=== PATIENT | male | born 1990 ===

== ENCOUNTER 2025-08-23 11:01 | Emergency (ER) | payer OTHER, SELFPAY ==
--- NOTE | ~2025-08-23 | XR_ITS ---
EXAMINATION: XR CHEST CLINICAL INFORMATION: body aches, weakness COMPARISON: None available. TECHNIQUE: 2 views of the chest were obtained. FINDINGS: The cardiomediastinal silhouette is within normal limits. The lungs are well expanded. There is no focal consolidation, edema, or effusion. No pneumothorax. No acute osseous abnormality. XR/XR chest 2V IMPRESSION: No evidence of acute cardiopulmonary process. Electronically signed by: Gino Chan MD 08/23/2025 12:38 PM EDT
--- NOTE | ~2025-08-23 | CT_ITS ---
EXAMINATION: CT ABDOMEN AND PELVIS WITH CONTRAST CLINICAL INFORMATION: Evaluate for pyelonephritis. COMPARISON: None available. TECHNIQUE: Multidetector volumetric images were obtained from the superior aspect of the liver through the pubic symphysis following administration 85 mL of Omnipaque 350 intravenous contrast. Sagittal and coronal reformatted images were obtained on the technologist's workstation. Oral contrast: No This CT examination was performed using dose optimization techniques as appropriate, variously including the following: *Automated exposure control *Adjustment of mA and/or kV according to patient size (this includes techniques or standardized protocols for targeted exams where dose is matched to indication/reason for exam; i.e. extremities or head) *Use of iterative reconstruction technique FINDINGS: LUNG BASES: Lung bases are essentially clear. Heart size is normal. No effusions. LIVER, GALLBLADDER, AND BILIARY TREE: The liver is normal in size, shape, and attenuation. No focal hepatic lesion or biliary ductal dilatation is present. The gallbladder is unremarkable with no evidence of radiopaque gallstones, gallbladder wall thickening, or obvious pericholecystic inflammatory changes. PANCREAS: Unremarkable. SPLEEN: Mild splenic enlargement measuring 15 x 14.8 cm. ADRENAL GLANDS: Unremarkable. KIDNEYS AND URETERS: There are 2 nonobstructing calculi in the right kidney measuring up to 5 mm in the lower pole. No hydronephrosis or hydroureter. There is no striation of the nephrogram. There is no mass. There are tiny subcentimeter cysts. There is no significant perirenal stranding. The left kidney demonstrates no calculi, hydronephrosis, or hydroureter. There is no striation of the nephrogram. There is no mass. There are tiny subcentimeter cysts. There is no significant perirenal stranding. BLADDER: Partially distended. There is diffuse, severe wall thickening with mucosal enhancement suggesting cystitis. There is mild perivesicular stranding. GASTROINTESTINAL TRACT: The appendix is normal. The stomach, duodenum, small bowel appear normal. The colon is a normal caliber, course, and appearance without wall thickening or inflammation. There is no rectal abnormality. ABDOMINAL WALL: There is a small fat-containing right inguinal hernia. LYMPH NODES: There is no pathologic lymphadenopathy present. Mildly prominent reactive appearing lymph nodes are present in the right greater than left inguinal regions. VASCULAR: Unremarkable. PELVIC VISCERA: The prostate and seminal vesicles are unremarkable. OSSEOUS STRUCTURES: There is no suspicious lytic or blastic bone lesion. There is mild sclerosis and subtle erosions of both SI joints suggestive of inflammatory arthropathy. CT/CT abdomen pelvis w IV con IMPRESSION: 1. Diffuse, severe wall thickening and mucosal enhancement of the urinary bladder suggesting cystitis/UTI. 2. There are 2 nonobstructing calculi in the right kidney. There is no evidence of pyelonephritis or hydronephrosis. 3. Mild splenomegaly. 4. 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 Electronically signed by: Yobani Farnsworth MD 08/23/2025 04:20 PM EDT
[2025-08-23 11:27] VITALS: BP 153/95; PULSE 101; RESP 20; TEMP 37.2; O2SAT 97; BMI 29.0
--- NOTE | 2025-08-23 11:27 | ED_ITS ---
HPI - General Adult General Chief complaint: General Medical Stated complaint: body aches Time Seen by Provider: 08/23/25 12:44 Source: patient Mode of arrival: ambulatory Limitations: no limitations History of Present Illness ED Provider: HPI narrative: 35-year-old male, history of non-insulin diabetes, reports using metformin 1000 mg before bedtime and glyburide unable to recall his dose, but has not been taking it for the past 3 days, it sounds like 5 days ago went out, I was drinking what he thought was as diet soda but likely regular [place] came home and sugars were high next day started vomiting, did not have diarrhea, since then decreased appetite and does not take his metformin I will give her a ride because he has not been eating. Sugars has been running high, some positional back pain he thinks because of just lots of sitting, no numbness in the groin, no weakness or numbness in the lower extremities, no IV drug use, and states that because of decreased p.o. intake has had trouble urinating but has been able to urinate. Drinks a lot of water. Also reports body aches. Otherwise healthy Related Data Previous Rx's ?Medication ?Instructions ?Recorded cephalexin 500 mg capsule 500 mg PO BID 7 days #14 cap s 08/23/25 ondansetron 4 mg disintegrating 4 mg PO Q8H PRN nausea and 08/23/25 tablet vomiting #4 tabs Allergies Allergy/AdvReac Type Severity Reaction Status Date / Time No Known Allergies Allergy Verified 08/23/25 11:30 Review of Systems 2 Constitutional: Constitutional: Reports as per [facility] Social History Social History Smoked in Last 30 Days: No Advance Directives: No Advance Directives Information Provided: Yes Physical Exam ED Exam Exam: General: ?Appears of stated age ? ?PERRLA, EOMI, slightly dry oral mucosa ? Neck: Supple, no LAD ? ?CV: RRR, no obvious murmurs appreciated ? ?Resp: ?No wheezing rales rhonchi no stridor moving air well ? Abd: ?Bowel sounds are present, no tenderness no rebound no rigidity, deferred ? ?MSK: FROM, strength 5/5 all extremities ? Skin: Warm, dry, intact, no jaundice ? ?Neuro: ?Alert and oriented x3, moving upper and lower extremities symmetrically, no obvious facial asymmetry noted, cranial nerves 2-12 intact Vital Signs: Vital Signs - 24 hr 08/23/25 11:27 08/23/25 12:20 08/23/25 14:04 Temperature 99 F 100.8 F H 98.8 F Pulse Rate 101 H 94 83 Respiratory Rate 20 22 H 18 Blood Pressure 153/95 H 155/93 H 142/91 H Pulse Oximetry 97 98 97 Oxygen Delivery Method Room Air Room Air Room Air BMI result Body Mass Index 29.0 Course Course Course Narrative: This is a Rapid Medical Examination (RME) performed by Simón Rueda PA-C in triage. Full HPI, ROS, assessment and treatment plan per primary provider in the Main ED. Hx: 35 yo M here for eval of nausea, vomiting, low back pain, subjective fevers, sweats, decreased PO intake, decreased urination and BMs x2 days. admits his sweat smells like urine. endorses his blood sugars have been >400 over the last week, has been changing his CGM without change. admits to sweet taste in mouth. PE/vitals: well appearing. 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 Plan: labs, viral swabs, UA Medications Administered Discontinued Medications Generic Name Dose Route Start Last Admin Trade Name Freq PRN Reason Stop Dose Admin Sodium Chloride 1,000 mls @ 999 mls/hr 08/23/25 13:30 08/23/25 14:56 Ns IV 08/23/25 14:30 Infused .Q1H1M RC Infusion Sodium Chloride 1,000 mls @ 999 mls/hr 08/23/25 15:15 08/23/25 15:34 Ns IV 08/23/25 16:15 999 mls/hr .Q1H1M RC Administration Ceftriaxone Sodium 2 gm/ 50 mls @ 100 mls/hr 08/23/25 15:30 08/23/25 16:05 Sodium Chloride IV 08/23/25 15:59 100 mls/hr ONCE ONE Administration Insulin Human Regular 10 unit 08/23/25 13:23 08/23/25 13:45 Insulin Regular, Human 100 Unit/Ml 10 Ml Vial IVPUSH 08/23/25 13:24 10 unit ONCE ONE Administration Insulin Human Regular 8 unit 08/23/25 15:08 08/23/25 15:33 Insulin Regular, Human 100 Unit/Ml 10 Ml Vial IVPUSH 08/23/25 15:09 8 unit ONCE ONE Administration Iohexol 100 ml 08/23/25 15:40 08/23/25 15:40 Iohexol 350 Mg/Ml 100 Ml Infus..Btl IV 08/23/25 15:41 100 ml ONCE ONE Administration Ketorolac Tromethamine 15 mg 08/23/25 13:23 08/23/25 13:46 Ketorolac Tromethamine 15 Mg/Ml Vial IVPUSH 08/23/25 13:24 15 mg ONCE ONE Administration Lidocaine 1 patch 08/23/25 13:23 08/23/25 13:46 Lidocaine 4 % Patch Adh..Patch TRANSDERMA 08/23/25 13:24 1 patch ONCE ONE Administration Protocol Ondansetron HCl 4 mg 08/23/25 13:23 08/23/25 13:45 Ondansetron Hcl 4 Mg/2 Ml Vial IVPUSH 08/23/25 13:24 4 mg ONCE ONE Administration Medical Decision Making Medical Decision Making MDM Narrative: 1:28 PM 08/23/2025 (Dr. Dax Agrawal): Overall patient has no risk factors for underlying spinous infectious etiology such as diskitis, osteomyelitis or spinal epidural abscess necessitating further imaging such as CT, there was really no suspicion for a renal colic as well, he has some lower lumbar pain paraspinal without rashes, with palpable spasms, no neurologic deficits in the lower extremities, blood work without any evidence for ketotic state, glucose is elevated, initially came in afebrile and then repeat temperature was 100.8 degrees, chest x-ray without pneumonia, the limited viral swab is negative, awaiting urinalysis to make sure it does not have a UTI, abdominal exam is otherwise benign. I plan to give fluids, antiemetics, anti- inflammatories, re-evaluate, I make sure he is able to take his metformin and glyburide. 4:35 PM 08/23/2025 (Dr. Dax Agrawal): Patient has been doing well overall, I have kept them updated regarding imaging, my suspicion for pyelonephritis and that is the reason why we obtained a CT, he received IV antibiotics, reassuringly CT shows cystitis no evidence for pyelonephritis, he is beginning to feel much better with fluids antiemetics, we will make sure he is able to tolerate p.o. and p.o. medications before I plan for discharge Differential Diagnosis Differential Diagnoses: The differential diagnosis associated with the presentation includes (DKA, dehydration, diskitis, osteomyelitis, spinal epidural abscess, pyelonephritis, UTI) Admission/Observation Consideration of admission/observation: Escalation of care including admission/observation considered Lab Data MDM Lab Attestation statement: I reviewed the patient's lab results. 08/23/25 11:42 08/23/25 11:42 Labs: Lab Results 08/23/25 08/23/25 08/23/25 Range/Units 11:42 11:46 12:24 WBC 6.2 (4.8-10.8) X10*3/uL RBC 5.68 (4.60-5.80) X10*6/uL Hgb 17.0 (14.0-18.0) g/dl Hct 48.1 (42.0-52.0) % MCV 84.7 (80.0-98.0) fL MCH 29.9 (27.0-33.0) pg MCHC 35.3 (31.0-36.0) g/dl RDW 11.5 (11.0-16.0) % Plt Count 166 (160-400) X10*3/uL MPV 9.5 (9.4-12.4) fL Immature Gran % (Auto) 0.3 (0.0-0.4) % Neut % (Auto) 74.0 H (45-73) % Lymph % (Auto) 16.9 L (20-40) % [place] % (Auto) 7.6 (2-11) % Eos % (Auto) 0.5 (0-4) % Baso % (Auto) 0.7 (0-2) % Lymph # (Auto) 1.0 L (1.2-4.9) X10*3/uL [place] # (Auto) 0.5 (0.1-1.2) X10*3/uL Eos # (Auto) 0.0 (0.0-0.4) X10*3/uL Baso # (Auto) 0.0 (0.0-0.2) X10*3/uL Abs Immat Gran (auto) 0.02 (0.00-0.03) X10*3/uL Absolute Neuts (auto) 4.6 (2.0-8.3) x10*3/uL Absolute Nucleated RBC 0.000 (0.0-0.012) X10*3/uL Nucleated RBC % (auto) 0.0 (0.0-0.2) /100WBC VBG pH 7.44 H (7.32-7.43) VBG pCO2 41 mmHg VBG pO2 43 mmHg VBG HCO3 28 H (22-26) mmol/L VBG O2 Saturation 74.0 % VBG Base Excess 4.0 mmol/L Sodium 136 (135-145) mmol/L Potassium 3.6 (3.3-5.1) mmol/L Chloride 99 (96-108) mmol/L Carbon Dioxide 27 (22-29) mmol/L Anion Gap 14 (12-20) BUN 11 (9-16) mg/dL Creatinine 0.77 (0.5-1.4) mg/dL Estim Creat Clear Calc 187.2 Estimated GFR > 60 POC Glucose 348 H (60-115) mg/dL Random Glucose 370 H* (60-115) mg/dL Calcium 9.0 (8.4-10.2) mg/dL Magnesium 1.7 (1.6-2.6) mg/dL Total Bilirubin 0.9 (0.0-1.0) mg/dL AST 25 (5-37) U/L ALT 25 (0-40) U/L Alkaline Phosphatase 118 H (39-117) U/L Total Protein 7.5 (6.5-8.0) g/dL Albumin 3.9 (3.5-5.0) g/dL Lipase 17 (8-78) U/L Beta-Hydroxybutyrate 0.13 (0.02-0.27) mmol/L Urine Color Urine Appearance Urine pH (5.0-9.0) Ur Specific [place] (1.005-1.025) Urine Protein (Neg-Trace) mg/dL Urine Glucose (UA) (Negative) mg/dL Urine Ketones (Negative) mg/dL Urine Blood (Negative) Urine Nitrite (Negative) Ur Leukocyte Esterase (Negative) Urine RBC (0-2) /HPF Urine WBC (0-5) /HPF Ur Squamous Epith Cells (0-2) /HPF Urine Bacteria (None Seen) Hyaline Casts (0-2) /LPF COVID-19 ([facility]) Negative (Negative) COVID-19 Clin Com See Note Influenza Type A ([facility]) Negative (Negative) Influenza Type B ([facility]) Negative (Negative) Influenza A & B Note See Note 08/23/25 08/23/25 Range/Units 14:54 15:02 WBC (4.8-10.8) X10*3/uL RBC (4.60-5.80) X10*6/uL Hgb (14.0-18.0) g/dl Hct (42.0-52.0) % MCV (80.0-98.0) fL MCH (27.0-33.0) pg MCHC (31.0-36.0) g/dl RDW (11.0-16.0) % Plt Count (160-400) X10*3/uL MPV (9.4-12.4) fL Immature Gran % (Auto) (0.0-0.4) % Neut % (Auto) (45-73) % Lymph % (Auto) (20-40) % [place] % (Auto) (2-11) % Eos % (Auto) (0-4) % Baso % (Auto) (0-2) % Lymph # (Auto) (1.2-4.9) X10*3/uL [place] # (Auto) (0.1-1.2) X10*3/uL Eos # (Auto) (0.0-0.4) X10*3/uL Baso # (Auto) (0.0-0.2) X10*3/uL Abs Immat Gran (auto) (0.00-0.03) X10*3/uL Absolute Neuts (auto) (2.0-8.3) x10*3/uL Absolute Nucleated RBC (0.0-0.012) X10*3/uL Nucleated RBC % (auto) (0.0-0.2) /100WBC VBG pH (7.32-7.43) VBG pCO2 mmHg VBG pO2 mmHg VBG HCO3 (22-26) mmol/L VBG O2 Saturation % VBG Base Excess mmol/L Sodium (135-145) mmol/L Potassium (3.3-5.1) mmol/L Chloride (96-108) mmol/L Carbon Dioxide (22-29) mmol/L Anion Gap (12-20) BUN (9-16) mg/dL Creatinine (0.5-1.4) mg/dL Estim Creat Clear Calc Estimated GFR POC Glucose 287 H (60-115) mg/dL Random Glucose (60-115) mg/dL Calcium (8.4-10.2) mg/dL Magnesium (1.6-2.6) mg/dL Total Bilirubin (0.0-1.0) mg/dL AST (5-37) U/L ALT (0-40) U/L Alkaline Phosphatase (39-117) U/L Total Protein (6.5-8.0) g/dL Albumin (3.5-5.0) g/dL Lipase (8-78) U/L Beta-Hydroxybutyrate (0.02-0.27) mmol/L Urine Color Dark Yellow Urine Appearance Cloudy Urine pH 6.0 (5.0-9.0) Ur Specific [place] >= 1.030 H (1.005-1.025) Urine Protein 100 (2+) H (Neg-Trace) mg/dL Urine Glucose (UA) >=1000 H (Negative) mg/dL Urine Ketones Trace (Negative) mg/dL Urine Blood Small (1+) H (Negative) Urine Nitrite Positive H (Negative) Ur Leukocyte Esterase Small (1+) H (Negative) Urine RBC 3-5 H (0-2) /HPF Urine WBC >50 H (0-5) /HPF Ur Squamous Epith Cells 0-2 (0-2) /HPF Urine Bacteria 4+ (None Seen) Hyaline Casts 0-2 (0-2) /LPF COVID-19 ([facility]) (Negative) COVID-19 Clin Com Influenza Type A ([facility]) (Negative) Influenza Type B ([facility]) (Negative) Influenza A & B Note ABG Data Attestation ABG: I personally reviewed and interpreted this ABG as follows: (There was no acidosis on VBG) Independent Interpretation I performed an independent interpretation of an: Plain X-Ray (My independent chest xray interpretation: Lungs: Lungs are clear bilaterally without evidence of focal consolidation, pleural effusion, or pneumothorax. Cardiac silhouette is unremarkable, no obvious mediastinal widening, no obvious bony abnormalities such as fractures. Impression: Normal chest X-r) Radiology Impression Discussion of test interpretation with radiology: I have reviewed the radiologist's reading. Radiologist Impression: 1. Diffuse, severe wall thickening and mucosal enhancement of the urinary bladder suggesting cystitis/UTI. 2. There are 2 nonobstructing calculi in the right kidney. There is no evidence of pyelonephritis or hydronephrosis. 3. Mild splenomegaly. 4. 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 Prescription Management I considered prescription management with: Pain Medication Chronic Conditions Patient?s care impacted by: Diabetes Discharge Plan Discharge Clinical Impression: Hyperglycemia Acute cystitis Qualifiers: Hematuria presence: with hematuria Qualified Code(s): N30.01 - Acute cystitis with hematuria Additional Instructions: Evaluated with elevated glucose, nausea, vomiting, fever, found to have urinary tract infection, cat scan was done to make sure there was no kidney infection, received fluids, insulin, also 500 mg metformin and 2.5 mg of glipizide, at home you can use another 500 mg of metformin for a regular dose and check if you take 5 mg of glipizide just take another half of your regular pill. Ondansetron is an antiemetic if you have nausea, vomiting you can take it every 6-8 hours as needed for nausea, stay well hydrated, continue antibiotics starting tomorrow. Follow up with the PCP any other issues concerns come back to the ER Prescriptions: New cephalexin 500 mg capsule 500 mg PO BID 7 Days Qty: 14 0RF ondansetron 4 mg tablet,disintegrating 4 mg PO Q8H PRN (Reason: nausea and vomiting) Qty: 4 0RF Print Language: Faroese
[2025-08-23 11:47] LABS: MANUAL DIFF FLAG NO
[2025-08-23 11:50] LABS: Hematocrit 48.1 % (42.0-52.0); Hemoglobin 17.0 g/dl (14.0-18.0); Imm Gran Abs Auto 0.02 X10*3/uL (0.00-0.03); Imm Gran Pct Auto 0.3 % (0.0-0.4); Lymphocytes Absolute Auto 1.0 X10*3/uL (1.2-4.9); Mean Corpuscular HGB Conc 35.3 g/dl (31.0-36.0); Mean Corpuscular Hemoglobin 29.9 pg (27.0-33.0); Mean Corpuscular Volume 84.7 fL (80.0-98.0); NRBC Abs Auto 0.000 X10*3/uL (0.0-0.012); NRBC Pct Auto 0.0 /100WBC (0.0-0.2); Platelet Count 166 X10*3/uL (160-400); Red Blood Count 5.68 X10*6/uL (4.60-5.80); White Blood Count 6.2 X10*3/uL (4.8-10.8)
[2025-08-23 11:52] LABS: Venous Blood Gas Refer to POC result
[2025-08-23 11:53] LABS: VBG HCO3 28 mmol/L (22-26); VBG O2 % Saturation 74.0 %
[2025-08-23 12:09] LABS: COVID-19 Test Negative (Negative); IDNOW Serial# 08D9AD1C
[2025-08-23 12:18] LABS: Alanine Aminotransferase 25 U/L (0-40); Albumin Level 3.9 g/dL (3.5-5.0); Alkaline Phosphatase 118 U/L (39-117); Anion Gap 14 (12-20); Aspartate Amino Transferase 25 U/L (5-37); Blood Urea Nitrogen 11 mg/dL (9-16); Calcium 9.0 mg/dL (8.4-10.2); Carbon Dioxide 27 mmol/L (22-29); Chloride 99 mmol/L (96-108); Creatinine Clr Calc Pharmacy 187.2; Estimated Glomerular Filt Rate > 60; Lipase 17 U/L (8-78); Magnesium 1.7 mg/dL (1.6-2.6); Potassium 3.6 mmol/L (3.3-5.1); Sodium 136 mmol/L (135-145); Total Protein 7.5 g/dL (6.5-8.0)
[2025-08-23 12:20] VITALS: BP 155/93; PULSE 94; RESP 22; TEMP 38.2; O2SAT 98
[2025-08-23 12:27] LABS: Glucose, Whole Blood 348 mg/dL (60-115)
[2025-08-23 12:40] LABS: IDNOW Serial# 55D5AD1C; Influenza B2 Negative (Negative)
[2025-08-23] MEDS: Lidocaine 4 % Patch ADH..PATCH 1 PATCH TRANSDERMA (13:46)
[2025-08-23 14:04] VITALS: BP 142/91; PULSE 83; RESP 18; TEMP 37.1; O2SAT 97
[2025-08-23 15:07] LABS: Glucose, Whole Blood 287 mg/dL (60-115)
[2025-08-23 15:13] LABS: Appearance Urine Cloudy; Glucose Urine UA >=1000 mg/dL (Negative); PH 6.0 (5.0-9.0); Specific Gravity - Urine >= 1.030 (1.005-1.025); UMIC TRIGGER UACC YES
[2025-08-23 15:23] LABS: UACC Culture Trigger YES
[2025-08-23] MEDS: iohexoL 350 MG/ML 100 ML INFUS..BTL IV (15:40)
[2025-08-23 16:46] LABS: Glucose, Whole Blood 172 mg/dL (60-115)
[2025-08-23 17:37] VITALS: BP 135/77; PULSE 88; RESP 18; TEMP 36.7; O2SAT 96
[2025-08-23 17:45] VITALS: BP 135/77; PULSE 88; RESP 18; TEMP 36.7; O2SAT 96
--- OUTSIDE RECORDS SUMMARY | 2025-08-23 18:33 | XMS_ITS | Clinical Summary ---
Author Organization Formerly [facility] Address [address] [place] [address] Care Team Providers Care Quilt Maker Name Role Phone Brent Gotti MD Primary Care Provider [phone] Allergies No known active allergies Medications methocarbamol (ROBAXIN) 750 MG tablet Take 1 tablet (750 mg total) by mouth 4 times daily (every 6 hours) as needed for muscle spasms. 20 tablet 0 12/29/2016 Active Social History Tobacco Use Types Packs/Day Years Used Date Smoking Tobacco: Never Alcohol Use Standard Drinks/Week Comments No 0 (1 standard drink = 0.6 oz pur e alcohol) Sex and Gender Information Value Date Recorded Sex Assigned at Not on file Legal Sex Male 7:24 PM EST Gender Identity Not on file Sexual Orientation Not on file Last Filed Vital Signs Vital Sign Reading Time Taken Comments Blood Pressure 140/80 12/29/2016 7:26 PM EST Pulse 96 12/29/2016 7:26 PM EST Temperature 36.2 C (97.2 F) 12/29/2016 7:26 PM EST Respiratory Rate 18 12/29/2016 7:26 PM EST Oxygen Saturation 98% 12/29/2016 7:26 PM EST Inhaled Oxygen Concentration - - Weight - - Height - - Body Mass Index - - Plan of Treatment Health Maintenance Due Date Last Done Comments Hepatitis C Virus Screening 1991 HIV Screening 2004 DTaP/Tdap/Td Vaccines (1 - Tdap) 2010 Hepatitis B Vaccines (1 of 3 - 19+ 3-dose series) 2010 Influenza Vaccine 06/02/2025 COVID-19 Vaccine (2023-2 5 season) 2025 HPV Vaccines (No Doses Required) Completed Pneumococcal Vaccine: Pediat emily (0-5 Years) and At-Risk Patients (6 to 49 Years) Aged Out No longer eligible b ased on patient's age to complete this topic Insurance [facility] Care Teams Quilt Maker Relationship Specialty Start Date End Date Brent Gotti MD PCP - General 12/29/16
--- OUTSIDE RECORDS SUMMARY | 2025-08-23 18:33 | XMS_ITS | Clinical Summary ---
Author Organization [facility] Address [address] [place] [address] Care Team Providers Care Transmitter Tester Name Role Phone Brent Gotti MD Primary Care Provider [phone] Allergies No known active allergies Medications Medication Sig Dispensed Refills Start Date End Date Status Oftlubb-Axwxd-Nswainwb- TenofDF (STRIBILD PO) Take by mouth every night at bedtime. 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 Human immunodeficiency virus (HIV) infection Papanicolaou smear of anus w ith atypical squamous cells of undetermined significance (ASC-US) 04/01/2017 Resolved Problems Problem Noted Date Diagnosed Date Resolved Date Perirectal abscess 04/01/2017 7 Anal fistula 02/16/2017 06/29/2017 Social History Tobacco Use Types Packs/Day Years Used Date Smoking Tobacco: Former Cigarettes 0.3 Alcohol Use Standard Drinks/Week Comments No 0 (1 standard drink = 0.6 oz pur e alcohol) Sex and Gender Information Value Date Recorded Sex Assigned at Not on file Gender Identity Not on file Sexual Orientation Not on file Last Filed Vital Signs Vital Sign Reading Time Taken Comments Blood Pressure 130/76 06/29/2017 3:19 PM EDT Pulse 93 06/29/2017 3:19 PM EDT Temperature 36.3 C (97.4 F) 02/20/2017 10:30 AM EDT Respiratory Rate 16 02/20/2017 11:33 AM EDT Oxygen Saturation 97% 02/20/2017 11:33 AM EDT Inhaled Oxygen Concentration - - Weight 128.4 kg (283 lb) 06/29/2017 3:19 PM EDT Height 195.6 cm (6' 5 ) 06/29/2017 3:19 PM EDT Body Mass Index 33.56 06/29/2017 3:19 PM EDT Plan of Treatment Health Maintenance Due Date Last Done Comments Hepatitis B Vaccines (1 of 3 - 3-dose series) 1991 Hepatitis C Screening 1991 Pneumococcal Vaccine (1 of 2 - PCV) 1997 Depression Screening 2003 Preventative Health Evaluation 2009 DTap / Tdap / Td (1 - Tdap) 2010 COVID-19 Vaccine (4 - 2024-2 6 season) 2025 03/25/2022, 02/24/2021, 01/29/2021 Influenza Vaccine (#1) 2025 RSV Ped < 20 months Aged Out No longe r eligible based on patient's age to complete this topic Advance Directives For more information, please contact: [phone] Latest Code Status on File Code Status Date Activated Date Inactivated Comments Full Code 02/20/2017 8:03 AM 02/20/2017 7:14 PM This code status was ascertained in the following way: discussion with patient. Care Teams Transmitter Tester Relationship Specialty Start Date End Date Brent Gotti MD PCP - General Family Medicine 02/11/17
--- OUTSIDE RECORDS SUMMARY | 2025-08-23 18:33 | XMS_ITS | Clinical Summary ---
Author Organization [facility] it Address [address] [place] [address] Care Team Providers Care Airborne Electronics Analyst Name Role Phone Brent Gotti MD Primary Care Provider [phone] Surgical History Surgery Date Site/Laterality Comments UPPER GASTROINTESTINAL ENDOSCOPY PROCEDURE:UPPER GASTROINTESTINAL ENDOSCOPY OTHER SURGICAL HISTORY 02/20/2017 N/A PROCEDURE:TREATMENT FISTULA ANAL;COMMENT:Procedure: @ PLACEMENT OF [facility]ON anal exam uinder anesthesia with biopsy; Surgeon: Cleveland Alanis MD; Location: MAIN OPERATING ROOM; Service: Colorectal; Laterality: N/A; Medical History Medical History Date Comments Hyperlipidemia DX:Hyperlipidemi a HIV (human immunodeficiency virus infection) ([facility]/HCC V24, CMS/HCC V28) DX:HIV (human im munodeficiency virus infection) ([facility]) ADHD (attention deficit hype ractivity disorder) DX:ADHD (attention deficit h yperactivity disorder) Social History Tobacco Use Types Packs/Day Years Used Date Smoking Tobacco: Former Cigarettes Alcohol Use Standard Drinks/Week Comments No 0 (1 standard drink = 0.6 oz pur e alcohol) Sex and Gender Information Value Date Recorded Sex Assigned at Not on file Legal Sex Male 4:31 PM EST Gender Identity Not on file Sexual Orientation Not on file Obstetrics History Plan of Treatment Health Maintenance Due Date Last Done Comments DTaP,Tdap,and Td Vaccines (1 - Tdap) 2010 Hepatitis B Vaccines (1 of 3 - 19+ 3-dose series) 2010 HPV Vaccines (1 - 3-dose SCD M series) 2018 Depression Screening 11/02/2024 COVID-19 Vaccine (4 - 2024-2 6 season) 2025 03/25/2022, 02/24/2021, 01/29/2021 Influenza Vaccine (#1) 2025 RSV Immunization Adult Patients (1 - 1-dose 75+ series) 2066 HIB Vaccines Aged Out No longer eligi ble based on patient's age to complete this topic Hepatitis A Vaccines Aged Out No long er eligible based on patient's age to complete this topic IPV Vaccines Aged Out No longer eligi ble based on patient's age to complete this topic MMR Vaccines Aged Out No longer eligi ble based on patient's age to complete this topic Meningococcal ACWY Vaccine Aged Out N o longer eligible based on patient's age to complete this topic Meningococcal B Vaccine Aged Out No l onger eligible based on patient's age to complete this topic Pneumococcal Vaccine: Pediatrics (0 to 5 Years) and At-Risk Patients (6 to 49 Years) Aged Out No longer eligible b ased on patient's age to complete this topic RSV Immunization Patients Under 20 months Aged Out No longer eligible b ased on patient's age to complete this topic Varicella Vaccines Aged Out No longer eligible based on patient's age to complete this topic Care Teams Airborne Electronics Analyst Relationship Specialty Start Date End Date Brent Gotti MD PCP - General Family Medicine 02/11/17
== END 2025-08-23 17:45 | disposition home or self-care (01) ==
PROVIDERS: Physician Assistant Medical; Emergency Provider Emergency Medicine; PCP Internal Medicine
DX: N39.0 Urinary tract infection, site not specified (principal); E11.65 Type 2 diabetes mellitus with hyperglycemia; M79.10 Myalgia, unspecified site; R11.2 Nausea with vomiting, unspecified; R50.9 Fever, unspecified; M54.50 Low back pain, unspecified; Z11.52 Encounter for screening for COVID-19; Z79.899 Other long term (current) drug therapy
CPT/HCPCS: 71046; 74177; 80053; 81001; 82010; 82803; 82947; 83690; 83735; 85025; 87040; 87086; 87088; 87186; 87502; 87635; 96361; 96374; 96375; 96376; 99284; 99285; J0696; J1885; J2405; Q9967

== ENCOUNTER → 2025-08-23 12:23 | Outpatient (BNV) | payer OTHER, SELFPAY | PROVIDERS: Emergency Provider Emergency Medicine; Visit Provider Radiology Diagnostic Ultrasound | DX: N20.0 Calculus of kidney (principal); R16.1 Splenomegaly, not elsewhere classified; R07.9 Chest pain, unspecified; R53.1 Weakness | CPT/HCPCS: 71046; 74177 ==

== ENCOUNTER 2025-09-22 20:43 | Inpatient (IN) | payer OTHER, SELFPAY ==
--- NOTE | ~2025-09-22 | CT_ITS ---
CLINICAL HISTORY: known pyelo, requested by Dr. Norris CT abdomen and pelvis without contrast Comparison: CT/CA/SR - CT ABDOMEN PELVIS WITH IV CONTRAST - 08/23/25 15:38 EDT Findings: No consolidation or effusion. Partially visualized heart and bilateral angle are unremarkable. 3 right-sided renal stones, the largest of which measures 0.7 cm in the lower pole. No hydronephrosis, hydroureter, or perinephric fat stranding. Limited evaluation for pyelonephritis in the absence of intravenous contrast. Unremarkable left kidney. Other solid organs unremarkable. No bowel obstruction, pneumoperitoneum, or pneumatosis. Normal appendix. Pelvic contents unremarkable. No acute fracture. IMPRESSION: Right-sided nephrolithiasis, the largest measuring 0.7 cm in the lower pole. No hydroureteronephrosis. Limited evaluation for pyelonephritis in the absence of intravenous contrast. This document has been electronically signed by: Pérez Nguyễn MD on 09/23/2025 00:11:54
[2025-09-22 20:58] VITALS: BP 152/80; PULSE 93; RESP 18; TEMP 37; O2SAT 97; BMI 39.6
[2025-09-22 21:23] LABS: MANUAL DIFF FLAG NO
--- OUTSIDE RECORDS SUMMARY | 2025-09-22 21:24 | XMS_ITS | Clinical Summary ---
Author Organization [facility] Address [address] [place] [address] Care Team Providers Care Leather Scraper Name Role Phone Brent Gotti MD Primary Care Provider [phone] Allergies No known active allergies Medications Medication Sig Dispensed Refills Start Date End Date Status Qchlkvf-Gqyng-Aedahhxd- TenofDF (STRIBILD PO) Take by mouth every [...] Advance Directives For more information, please contact: [phone] Latest Code Status on File Code Status Date Activated Date Inactivated Comments Full Code 02/20/2017 8:03 AM 02/20/2017 7:14 PM This code status was ascertained in the following way: discussion with patient. Care Teams Leather Scraper Relationship Specialty Start Date End Date Brent Gotti MD PCP - General Family Medicine 02/11/17
--- OUTSIDE RECORDS SUMMARY | 2025-09-22 21:24 | XMS_ITS | Clinical Summary ---
Author Organization [facility] Address [address] [place] [address] Care Team Providers Care Iv Rn Name Role Phone Brent Gotti MD Primary Care Provider [phone] Allergies No known active allergies Medications methocarbamol [...] patient's age to complete this topic Insurance [facility] Care Teams Iv Rn Relationship Specialty Start Date End Date Brent Gotti MD PCP - General 12/29/16
[2025-09-22 21:26] LABS: Appearance Urine Cloudy; Glucose Urine UA >=1000 mg/dL (Negative); Hematocrit 46.1 % (42.0-52.0); Hemoglobin 16.5 g/dl (14.0-18.0); Imm Gran Abs Auto 0.04 X10*3/uL (0.00-0.03); Imm Gran Pct Auto 0.3 % (0.0-0.4); Lymphocytes Absolute Auto 1.5 X10*3/uL (1.2-4.9); Mean Corpuscular HGB Conc 35.8 g/dl (31.0-36.0); Mean Corpuscular Hemoglobin 30.2 pg (27.0-33.0); Mean Corpuscular Volume 84.4 fL (80.0-98.0); NRBC Abs Auto 0.000 X10*3/uL (0.0-0.012); NRBC Pct Auto 0.0 /100WBC (0.0-0.2); PH 5.5 (5.0-9.0); Platelet Count 171 X10*3/uL (160-400); Red Blood Count 5.46 X10*6/uL (4.60-5.80); Specific Gravity - Urine >= 1.030 (1.005-1.025); UMIC TRIGGER UACC YES; White Blood Count 12.3 X10*3/uL (4.8-10.8)
[2025-09-22 21:40] LABS: Alanine Aminotransferase 49 U/L (0-40); Albumin Level 4.4 g/dL (3.5-5.0); Alkaline Phosphatase 115 U/L (39-117); Anion Gap 11 (12-20); Aspartate Amino Transferase 24 U/L (5-37); Blood Urea Nitrogen 12 mg/dL (9-16); Calcium 9.3 mg/dL (8.4-10.2); Carbon Dioxide 27 mmol/L (22-29); Chloride 102 mmol/L (96-108); Creatinine Clr Calc Pharmacy 166.2; Estimated Glomerular Filt Rate > 60; Lipase 15 U/L (8-78); Potassium 4.1 mmol/L (3.3-5.1); Sodium 136 mmol/L (135-145); Total Protein 7.6 g/dL (6.5-8.0)
[2025-09-22 21:45] LABS: UACC Culture Trigger YES
--- NOTE | 2025-09-22 22:24 | ED_ITS ---
HPI - Male Genitourinary General Chief complaint: Urogenital-Male Stated complaint: Back Pain Time Seen by Provider: 09/22/25 22:02 Source: patient Mode of arrival: ambulatory Limitations: no limitations History of Present Illness ED Provider: Dr. Malissa Kirby HPI Narrative: Patient comes in the emergency room complaining of bilateral flank pain, subjective fever, nausea vomiting, foul-smelling urine and dysuria. Patient states that last month he had a UTI, given antibiotics, did not quite fully resolved. Symptoms have gradually been getting worse over the last few days. Related Data Previous Rx's ?Medication ?Instructions ?Recorded cephalexin 500 mg capsule 500 mg PO BID 7 days #14 cap s 08/23/25 ondansetron 4 mg disintegrating 4 mg PO Q8H PRN nausea and 08/23/25 tablet vomiting #4 tabs nitrofurantoin 100 mg PO Q12H 5 days #10 ca ps 08/29/25 monohydrate/macrocrystals 100 mg capsule (Macrobid) Allergies Allergy/AdvReac Type Severity Reaction Status Date / Time No Known Allergies Allergy Verified 09/22/25 21:02 Review of Systems 2 Review of Systems: Constitutional : No Weight loss, complaining of subjective fever, chills, fatigue aches, generalized malaise ENT/Mouth : No Hearing loss, No Ear Pain, No Nasal Congestion, No Sinus Pain, No Hoarseness, No sore throat, No Rhinorrhea, No Swallowing Difficulty Eyes: No Eye Pain, No Swelling, No Redness, No Foreign Body, No Discharge, No Vision Changes Cardiovascular : No Chest Pain, No SOB, No Dyspnea on Exertion, No Orthopnea, No Edema, No Palpitations Respiratory : No Cough, No Sputum, No Wheezing, No Smoke Exposure, No Dyspnea Gastrointestinal : Complaining of nausea No Vomiting, No Diarrhea, No Constipation, No abdominal Pain, No Hematochezia, No Melena Genitourinary : Complaining of dysuria and foul-smelling urine, No Urinary Frequency, No Hematuria, No Urinary Incontinence, No Urgency, No Flank Pain, No Urinary Flow Changes, No Hesitancy Musculoskeletal : No joint pain, No Myalgias, No Joint Swelling Skin : No Skin Lesions, No rash Neuro : No Weakness, No Numbness, No Paresthesias, No Loss of Consciousness, No Dizziness, No Headache Psych : No Anxiety/Panic, No Depression, No SI/HI/AH/VH, No Social Issues, Heme/Lymph: No Bruising, No Bleeding,No Lymphadenopathy Endocrine : No Polyuria, No Polydipsia, No Temperature Intolerance [facility] Past Medical History Medical History HIV (human immunodeficiency virus infection) Class 2 obesity UTI (urinary tract infection) Social History Social History Advance Directives: No Advance Directives Information Provided: No Do you have a plan to hurt others: No Plan Physical Exam 2 Exam: Exam: Appearance: Alert. Oriented X3. No acute distress. Eyes: Pupils equal, round and reactive to light. ENT: Pharynx normal. Neck: Normal inspection. Neck supple. No lymph nodes noted. No crepitus CVS: Normal heart rate and rhythm. Pulses normal. Normal S1 and S2 Respiratory: No respiratory distress. Breath sounds normal. No Wheezing. No rales Abdomen: Soft and nontender. No rigidity. No distention. Back: No thoracic or lumbar spine tenderness, positive CVA tenderness bilaterally Skin: Is warm to touch, more than the normal temperature recorded, Normal skin color. Normal skin turgor. Extremities: No lower extremity edema. No Lacerations. No Rash Neuro: Oriented X 3. No motor deficit. No sensory deficit. Moving all extremities. No slurred speech. CN 2 through 12 grossly intact Psych: calm, cooperative, normal affect Vital Signs: Vital Signs: Last Vital Signs Temp 98.6 F 09/22/25 20:58 Pulse 93 09/22/25 20:58 Resp 18 09/22/25 20:58 BP 152/80 H 09/22/25 20:58 Pulse Ox 97 09/22/25 20:58 O2 Del Method Room Air 09/22/25 20:58 BMI result Body Mass Index 39.6 Medications Administered Generic Name Dose Route Start Last Admin Trade Name Freq PRN Reason Stop Dose Admin Lactated Ringer's 1,000 mls @ 100 mls/hr 09/22/25 23:15 09/23/25 00:36 Lr IVCONT 100 mls/hr .Q10H RC Administration Meropenem 1 gm 09/23/25 00:00 09/23/25 00:40 Meropenem 1 Gm Vial IVPUSH 1 gm Q8H RC Administration Sodium Chloride 3 ml 09/23/25 00:00 09/23/25 00:41 0.9 % Sodium Chloride Flush 3 Ml Syringe IVFLUSH Not Given QSHIFT RC Discontinued Medications Generic Name Dose Route Start Last Admin Trade Name David PRN Reason Stop Dose Admin Sodium Chloride 1,000 mls @ 999 mls/hr 09/22/25 22:13 09/23/25 00:35 Ns IVCONT 09/22/25 23:13 Infused .Q1H1M ONE Infusion Levofloxacin 500 mg in 100 mls @ 100 mls/hr 09/22/25 22:13 09/23/25 00:11 Levaquin IV 09/22/25 23:12 Infused ONCE ONE Infusion Ketorolac Tromethamine 30 mg 09/22/25 22:13 09/22/25 22:42 Ketorolac Tromethamine 30 Mg/Ml Vial IVPUSH 09/22/25 22:14 30 mg ONCE ONE Administration Ondansetron HCl 4 mg 09/22/25 22:13 09/22/25 22:42 Ondansetron Hcl 4 Mg/2 Ml Vial IVPUSH 09/22/25 22:14 4 mg ONCE ONE Administration Medical Decision Making Medical Decision Making MDM Narrative: I discussed the labs with the patient, my interpretation of labs: Patient's white blood cell count 309. Patient's chemistry does not show any significant acute abnormality. However, patient's glucose 309, patient is known to be diabetic. Urinalysis patient has a UTI. Clinically, patient has pyelonephritis. Patient is being given IV fluids, Zofran, Toradol and levofloxacin Patient's vitals are stable, no episodes of hypotension, sepsis is not suspected. Patient is not tolerating p.o. Patient had a CT scan done about a month ago when he was here for similar symptoms. CT scan showed urinary bladder wall thickening , and 2 nonobstructing calculi in the right kidney I discussed the above-mentioned with Dr. Schreiber, patient being admitted to the Medicine team. Differential Diagnosis Differential Diagnoses: The differential diagnosis associated with the presentation includes (UTI, pyelonephritis, ureterolithiasis) Admission/Observation Consideration of admission/observation: Escalation of care including admission/observation considered Consult Healthcare Provider Management of the patient was discussed with: Hospitalist Lab Data [facility] Lab Attestation statement: I reviewed the patient's lab results. 09/22/25 21:16 09/22/25 21:16 Labs: Lab Results 09/22/25 09/22/25 Range/Units 21:16 22:50 WBC 12.3 H (4.8-10.8) X10*3/uL RBC 5.46 (4.60-5.80) X10*6/uL Hgb 16.5 (14.0-18.0) g/dl Hct 46.1 (42.0-52.0) % MCV 84.4 (80.0-98.0) fL MCH 30.2 (27.0-33.0) pg MCHC 35.8 (31.0-36.0) g/dl RDW 12.3 (11.0-16.0) % Plt Count 171 (160-400) X10*3/uL MPV 9.9 (9.4-12.4) fL Immature Gran % (Auto) 0.3 (0.0-0.4) % Neut % (Auto) 81.7 H (45-73) % Lymph % (Auto) 11.9 L (20-40) % Bee % (Auto) 5.5 (2-11) % Eos % (Auto) 0.2 (0-4) % Baso % (Auto) 0.4 (0-2) % Lymph # (Auto) 1.5 (1.2-4.9) X10*3/uL Bee # (Auto) 0.7 (0.1-1.2) X10*3/uL Eos # (Auto) 0.0 (0.0-0.4) X10*3/uL Baso # (Auto) 0.1 (0.0-0.2) X10*3/uL Abs Immat Gran (auto) 0.04 H (0.00-0.03) X10*3/uL Absolute Neuts (auto) 10.1 H (2.0-8.3) x10*3/uL Absolute Nucleated RBC 0.000 (0.0-0.012) X10*3/uL Nucleated RBC % (auto) 0.0 (0.0-0.2) /100WBC Sodium 136 (135-145) mmol/L Potassium 4.1 (3.3-5.1) mmol/L Chloride 102 (96-108) mmol/L Carbon Dioxide 27 (22-29) mmol/L Anion Gap 11 L (12-20) BUN 12 (9-16) mg/dL Creatinine 1.01 (0.5-1.4) mg/dL Estim Creat Clear Calc 166.2 Estimated GFR > 60 Random Glucose 309 H (60-115) mg/dL Lactic Acid 1.8 (0.5-2.0) mmol/L Calcium 9.3 (8.4-10.2) mg/dL Total Bilirubin 1.0 (0.0-1.0) mg/dL AST 24 (5-37) U/L ALT 49 H (0-40) U/L Alkaline Phosphatase 115 (39-117) U/L Total Protein 7.6 (6.5-8.0) g/dL Albumin 4.4 (3.5-5.0) g/dL Lipase 15 (8-78) U/L Urine Color Dark Yellow Urine Appearance Cloudy Urine pH 5.5 (5.0-9.0) Ur Specific [place] >= 1.030 H (1.005-1.025) Urine Protein 100 (2+) H (Neg-Trace) mg/dL Urine Glucose (UA) >=1000 H (Negative) mg/dL Urine Ketones Trace (Negative) mg/dL Urine Blood Large (3+) H (Negative) Urine Nitrite Positive H (Negative) Ur Leukocyte Esterase Small (1+) H (Negative) Urine RBC >20 H (0-2) /HPF Urine WBC >50 H (0-5) /HPF Ur Squamous Epith Cells 3-5 (0-2) /HPF Urine Bacteria 4+ (None Seen) Hyaline Casts 0-2 (0-2) /LPF Urine Yeast Present Independent Interpretation I performed an independent interpretation of an: CT Scan Radiology Impression Discussion of test interpretation with radiology: I have reviewed the radiologist's reading. Radiologist Impression: No consolidation or effusion. Partially visualized heart and bilateral angle are unremarkable. 3 right-sided renal stones, the largest of which measures 0.7 cm in the lower pole. No hydronephrosis, hydroureter, or perinephric fat stranding. Limited evaluation for pyelonephritis in the absence of intravenous contrast. Unremarkable left kidney. Other solid organs unremarkable. No bowel obstruction, pneumoperitoneum, or pneumatosis. Normal appendix. Pelvic contents unremarkable. No acute fracture. IMPRESSION: Right-sided nephrolithiasis, the largest measuring 0.7 cm in the lower pole. No hydroureteronephrosis. Limited evaluation for pyelonephritis in the absence of intravenous contrast. Critical Care Time Critical Care Time Critical Care Time: Yes Total Critical Care Time: 45 Attestation: I have personally provided critical care time. Time includes review of lab data, radiology results, discussion with consultants, and monitoring for potential decompensation. Intervention performed as documented. Discharge Plan Discharge Clinical Impression: Acute pyelonephritis Patient Disposition: Admitted As Inpatient
--- NOTE | 2025-09-22 23:20 | PM.IMHP ---
History of Present Illness Date of Service: 09/22/25 Attending physician on admission: Piyush Schreiber Chief Complaint: dysuria Patient is a 35-year-old male with a past medical history significant for type 2 diabetes, HIV, class 2 obesity and recent ED visit for acute UTI and hyperglycemia, who presented to the ED again due to worsening symptoms. The patient reports fever, nausea, vomiting, malodorous urine, dysuria and worsening UTI symptoms. He was initially discharged from the ED with cephalexin however this was switched to 2 nitrofurantoin based off of urine culture results. Urine culture was positive for E coli with ESBL, sensitive to ertapenem and Macrobid only. He is complaining of right-sided flank pain and lack of improvement with oral antibiotics. Review of Systems Constitutional: Constitutional: Denies body ache(s), Reports chills, Denies fatigue, Reports fever(s) and Denies headache(s) Eyes: Eyes: Denies change in vision ENT: Denies headache(s), Denies nasal congestion and Denies sore throat Cardiovascular: Cardiovascular: Denies chest pain, Denies rapid heart rate, Denies leg edema, Denies lightheadedness and Denies dyspnea Respiratory: Respiratory: Denies chest congestion, Denies cough, Denies dyspnea and Denies wheezing Gastrointestinal: Gastrointestinal: Denies abdominal pain, Denies diarrhea, Reports nausea and Reports vomiting Genitourinary: Genitourinary: Reports as per HPI Musculoskeletal: Musculoskeletal: Denies myalgias Integumentary/Breasts: Skin/Breast: Denies rash Neurologic: Denies confusion and Denies headache(s) Psychiatric: Psychiatric: Denies confusion Endocrine: Endocrine: Denies fatigue Hematologic/Lymphatic: Hematologic/Lymphatic: Denies easy bleeding Allergic/Immunologic: Allergic/Immunologic: Denies wheezing [facility] Medical History HIV (human immunodeficiency virus infection) Class 2 obesity UTI (urinary tract infection) Functional capacity: independent ambulation Social History Advance Directives: No Advance Directives Information Provided: No Do you have a plan to hurt others: No Plan Meds Allergies Allergy/AdvReac Type Severity Reaction Status Date / Time No Known Allergies Allergy Verified 09/22/25 21:02 Active Medications: Current Medications Acetaminophen (Acetaminophen 325 Mg Tablet) 975 mg PO Q6H PRN PRN Reason: Pain, Mild 1-3,fever,headache Calcium Carbonate (Calcium Carbonate 750 Mg Tab.Chew) 750 mg PO Q4H PRN PRN Reason: Heartburn Dextrose (Dextrose 50 % 25 Gm/50 Ml Syringe) 25 gm IVPUSH Q15M PRN; Protocol PRN Reason: per Hypoglycemia Standing Ord. Enoxaparin Sodium (Enoxaparin Sodium 40 Mg/0.4 Ml Syringe) 40 mg SUBCUT Q24H RC Glucose (Glucose Gel 15 Gm Gel..Gram.) 15 gm PO Q15M PRN; Protocol PRN Reason: per Hypoglycemia Standing Ord. Hydromorphone HCl (Hydromorphone Hcl 1 Mg/Ml Syringe) 0.5 mg IVPUSH Q4H PRN; Protocol PRN Reason: Pain, Severe (Pain Scale 7-10) Lactated Ringer's (Lr) 1,000 mls @ 100 mls/hr IVCONT .Q10H RC Insulin Human Lispro (Insulin Lispro 100 Unit/Ml 3 Ml Vial) 0 unit SUBCUT QIDACHS [facility]; Protocol Magnesium Hydroxide (Milk Of Magnesia 30 Ml Oral.Susp) 30 ml PO DAILY PRN PRN Reason: Constipation Melatonin (Melatonin 3 Mg Tablet) 6 mg PO BEDTIME PRN PRN Reason: Insomnia Meropenem (Meropenem 1 Gm Vial) 1 gm IVPUSH Q8H RC Ondansetron HCl (Ondansetron Hcl 4 Mg/2 Ml Vial) 4 mg IVPUSH Q8H PRN PRN Reason: Nausea and Vomiting Oxycodone HCl (Oxycodone Hcl Immed Release 5 Mg Tablet) 5 mg PO Q6H PRN PRN Reason: Pain, Moderate(Pain Scale 4-6) Sodium Chloride (0.9 % Sodium Chloride Flush 3 Ml Syringe) 3 ml IVFLUSH QSHIFT [facility] Physical Exam Vital Signs and Narrative: Vital Signs: Last Vital Signs Temp 98.6 F 09/22/25 20:58 Pulse 93 09/22/25 20:58 Resp 18 09/22/25 20:58 BP 152/80 H 09/22/25 20:58 Pulse Ox 97 09/22/25 20:58 O2 Del Method Room Air 09/22/25 20:58 BMI result Body Mass Index 39.6 General: AOx3, no acute distress Resp: CTA bilaterally CVS: S1, S2, RRR GI: +BS, NT, no distention, +R CVA tenderness Skin: Warm, dry Neuro: Cranial nerves II-XII grossly intact bilaterally. Motor grossly intact bilaterally Extremities: No pitting edema Psych: Appropriate affect Const: General: No confusion Orientation/consciousness: No confusion Neuro: General: No confusion Results Labs 09/22/25 21:16 09/22/25 21:16 Labs: Laboratory Results - last 24 hr 09/22/25 09/22/25 21:16 22:50 MCV 84.4 MCH 30.2 MCHC 35.8 RDW 12.3 Plt Count 171 MPV 9.9 Immature Gran % (Auto) 0.3 Neut % (Auto) 81.7 H Lymph % (Auto) 11.9 L [place] % (Auto) 5.5 Eos % (Auto) 0.2 Baso % (Auto) 0.4 Lymph # (Auto) 1.5 [place] # (Auto) 0.7 Eos # (Auto) 0.0 Baso # (Auto) 0.1 Abs Immat Gran (auto) 0.04 H Absolute Neuts (auto) 10.1 H Absolute Nucleated RBC 0.000 Nucleated RBC % (auto) 0.0 Anion Gap 11 L Estim Creat Clear Calc 166.2 Estimated GFR > 60 Random Glucose 309 H Lactic Acid 1.8 Calcium 9.3 Total Bilirubin 1.0 AST 24 ALT 49 H Alkaline Phosphatase 115 Total Protein 7.6 Albumin 4.4 Lipase 15 Urine Color Dark Yellow Urine Appearance Cloudy Urine pH 5.5 Ur Specific [place] >= 1.030 H Urine Protein 100 (2+) H Urine Glucose (UA) >=1000 H Urine Ketones Trace Urine Blood Large (3+) H Urine Nitrite Positive H Ur Leukocyte Esterase Small (1+) H Urine RBC >20 H Urine WBC >50 H Ur Squamous Epith Cells 3-5 Urine Bacteria 4+ Hyaline Casts 0-2 Urine Yeast Present Assessment and Plan (1) Sepsis: Status: Acute (2) Acute pyelonephritis: Status: Acute (3) Class 2 obesity: Status: Acute Plan Patient is a 35-year-old male with a past medical history significant for type 2 diabetes, HIV, class 2 obesity and recent ED visit for acute UTI and hyperglycemia, who presented to the ED again due to worsening symptoms. sepsis secondary to acute pyelonephritis, likely ESBL - CT abd/pelvis ordered - blood cultures pending - meropenum per previous urine culture, new culture pending - ID consult - IVF - monitor CBC and BMP T2DM - SSI - diabetic diet - hold metformin and glipizide - check A1C HIV - genvoya class 2 obesity - weight loss encouraged med rec pending full code VTE prophy: lovenox Patient with sepsis secondary to acute pyelonephritis, likely ESBL, with failed outpatient treatment, requiring admission for at least 2 midnights stay for IV antibiotics and monitoring. Quality Stroke Does the patient have a stroke diagnosis?: No VTE Prior VTE?: No VTE Risk Level:: Medical - moderate - high VTE Device Contraindication: Treatment Not Indicated VTE Drug Contraindication: N/A - Med Ordered
[2025-09-23] VITALS (7 sets, daily range): BP systolic 159–171; BP diastolic 75–100; PULSE 97–117; RESP 18–19; TEMP 36.7–39.1; O2SAT 93–97; BMI 29.9
--- NOTE | 2025-09-23 | MHC.EDTECH ---
Patient didn't disclosed the exact amount of [place] on his wallet, when asked patient the amount he responded it's in my bag Asked patient if it was more than $20 and he said no.
[2025-09-23] MEDS: Lactated Ringers 1,000 ML 100 ML IVCONT ×2 (00:36→12:18)
[2025-09-23] MEDS: Flu Vacc TS2025-26(6mo up)/PF 0.5 ML SYRINGE IM (05:38)
[2025-09-23 07:55] LABS: Glucose, Whole Blood 300 mg/dL (60-115)
[2025-09-23 09:05] LABS: MANUAL DIFF FLAG NO
[2025-09-23 09:10] LABS: Hematocrit 42.9 % (42.0-52.0); Hemoglobin 15.5 g/dl (14.0-18.0); Imm Gran Abs Auto 0.04 X10*3/uL (0.00-0.03); Imm Gran Pct Auto 0.4 % (0.0-0.4); Lymphocytes Absolute Auto 0.7 X10*3/uL (1.2-4.9); Mean Corpuscular HGB Conc 36.1 g/dl (31.0-36.0); Mean Corpuscular Hemoglobin 30.2 pg (27.0-33.0); Mean Corpuscular Volume 83.5 fL (80.0-98.0); NRBC Abs Auto 0.000 X10*3/uL (0.0-0.012); NRBC Pct Auto 0.0 /100WBC (0.0-0.2); Platelet Count 135 X10*3/uL (160-400); Red Blood Count 5.14 X10*6/uL (4.60-5.80); White Blood Count 11.0 X10*3/uL (4.8-10.8)
[2025-09-23 09:18] LABS: Anion Gap 12 (12-20); Blood Urea Nitrogen 16 mg/dL (9-16); Calcium 8.7 mg/dL (8.4-10.2); Carbon Dioxide 24 mmol/L (22-29); Chloride 102 mmol/L (96-108); Creatinine Clr Calc Pharmacy 178.0; Estimated Glomerular Filt Rate > 60; Potassium 3.8 mmol/L (3.3-5.1); Sodium 134 mmol/L (135-145)
--- NOTE | 2025-09-23 10:05 | HO.PM.IMPN ---
Subjective Subjective Date of Service: 09/23/25 Interval History: Patient seen examined at bedside this morning, patient states that he is feeling better, was able to sleep, however continues with mild pain. Review of Systems Review of Systems: Yes all other systems are reviewed and are negative Physical Exam Exam: Exam: General: AxOx3, ill-appearing Head: AT/NC ENT: Moist mucous membranes Neck: supple CVS; RRR, S1 S2 normal Lungs: Clear bilateral breath sounds, no wheezes or crackles Abd: Soft non tender, non distended Ext: No edema and no calf tenderness MSK: moving all 4 limbs Skin: No cyanosis or edema Psych: Cooperative with exam Neurology: no focal deficit Vital Signs: Vital Signs: Last Vital Signs Temp 101.2 F H 09/23/25 07:55 Pulse 113 H 09/23/25 07:55 Resp 18 09/23/25 07:55 BP 159/83 H 09/23/25 07:55 Pulse Ox 95 09/23/25 07:55 O2 Del Method Room Air 09/23/25 07:55 BMI result Body Mass Index 29.9 Objective Data Active Medications Acetaminophen (Acetaminophen 325 Mg Tablet) 975 mg PO Q6H PRN PRN Reason: Pain, Mild 1-3,fever,headache Calcium Carbonate (Calcium Carbonate 750 Mg Tab.Chew) 750 mg PO Q4H PRN PRN Reason: Heartburn Dextrose (Dextrose 50 % 25 Gm/50 Ml Syringe) 25 gm IVPUSH Q15M PRN; Protocol PRN Reason: per Hypoglycemia Standing Ord. Enoxaparin Sodium (Enoxaparin Sodium 40 Mg/0.4 Ml Syringe) 40 mg SUBCUT Q24H [facility] Last Admin: 09/23/25 08:21 Dose: 40 mg Documented By: DEBBIE Glucose (Glucose Gel 15 Gm Gel..Gram.) 15 gm PO Q15M PRN; Protocol PRN Reason: per Hypoglycemia Standing Ord. Hydromorphone HCl (Hydromorphone Hcl 1 Mg/Ml Syringe) 0.5 mg IVPUSH Q4H PRN; Protocol PRN Reason: Pain, Severe (Pain Scale 7-10) Lactated Ringer's (Lr) 1,000 mls @ 100 mls/hr IVCONT .Q10H [facility] Last Admin: 09/23/25 00:36 Dose: 100 mls/hr Documented By: ODETTE Insulin Human Lispro (Insulin Lispro 100 Unit/Ml 3 Ml Vial) 0 unit SUBCUT QIDACHS [facility]; Protocol Last Admin: 09/23/25 08:21 Dose: 6 unit Documented By: DEBBIE Magnesium Hydroxide (Milk Of Magnesia 30 Ml Oral.Susp) 30 ml PO DAILY PRN PRN Reason: Constipation Melatonin (Melatonin 3 Mg Tablet) 6 mg PO BEDTIME PRN PRN Reason: Insomnia Meropenem (Meropenem 1 Gm Vial) 1 gm IVPUSH Q8H [facility] Last Admin: 09/23/25 08:22 Dose: 1 gm Documented By: DEBBIE Ondansetron HCl (Ondansetron Hcl 4 Mg/2 Ml Vial) 4 mg IVPUSH Q8H PRN PRN Reason: Nausea and Vomiting Oxycodone HCl (Oxycodone Hcl Immed Release 5 Mg Tablet) 5 mg PO Q6H PRN PRN Reason: Pain, Moderate(Pain Scale 4-6) Sodium Chloride (0.9 % Sodium Chloride Flush 3 Ml Syringe) 3 ml IVFLUSH QSHIFT [facility] Last Admin: 09/23/25 08:22 Dose: Not Given Documented By: DEBBIE Non-Admin Reason: IV Running Labs 09/23/25 08:54 09/23/25 08:54 Labs: Laboratory Results - last 24 hr 09/22/25 09/22/25 09/23/25 21:16 22:50 07:21 MCV 84.4 MCH 30.2 MCHC 35.8 RDW 12.3 Plt Count 171 MPV 9.9 Immature Gran % (Auto) 0.3 Neut % (Auto) 81.7 H Lymph % (Auto) 11.9 L Wise % (Auto) 5.5 Eos % (Auto) 0.2 Baso % (Auto) 0.4 Lymph # (Auto) 1.5 Wise # (Auto) 0.7 Eos # (Auto) 0.0 Baso # (Auto) 0.1 Abs Immat Gran (auto) 0.04 H Absolute Neuts (auto) 10.1 H Absolute Nucleated RBC 0.000 Nucleated RBC % (auto) 0.0 Anion Gap 11 L Estim Creat Clear Calc 166.2 Estimated GFR > 60 POC Glucose 300 H Random Glucose 309 H Estimat Average Glucose 237 Hemoglobin A1c % 9.9 H Lactic Acid 1.8 Calcium 9.3 Total Bilirubin 1.0 AST 24 ALT 49 H Alkaline Phosphatase 115 Total Protein 7.6 Albumin 4.4 Lipase 15 Urine Color Dark Yellow Urine Appearance Cloudy Urine pH 5.5 Ur Specific Oto >= 1.030 H Urine Protein 100 (2+) H Urine Glucose (UA) >=1000 H Urine Ketones Trace Urine Blood Large (3+) H Urine Nitrite Positive H Ur Leukocyte Esterase Small (1+) H Urine RBC >20 H Urine WBC >50 H Ur Squamous Epith Cells 3-5 Urine Bacteria 4+ Hyaline Casts 0-2 Urine Yeast Present 09/23/25 08:54 MCV 83.5 MCH 30.2 MCHC 36.1 H RDW 11.9 Plt Count 135 L MPV 10.0 Immature Gran % (Auto) 0.4 Neut % (Auto) 86.6 H Lymph % (Auto) 6.1 L Wise % (Auto) 6.6 Eos % (Auto) 0.0 Baso % (Auto) 0.3 Lymph # (Auto) 0.7 L Wise # (Auto) 0.7 Eos # (Auto) 0.0 Baso # (Auto) 0.0 Abs Immat Gran (auto) 0.04 H Absolute Neuts (auto) 9.5 H Absolute Nucleated RBC 0.000 Nucleated RBC % (auto) 0.0 Anion Gap 12 Estim Creat Clear Calc 178.0 Estimated GFR > 60 POC Glucose Random Glucose 278 H Estimat Average Glucose Hemoglobin A1c % Lactic Acid Calcium 8.7 D Total Bilirubin AST ALT Alkaline Phosphatase Total Protein Albumin Lipase Urine Color Urine Appearance Urine pH Ur Specific Oto Urine Protein Urine Glucose (UA) Urine Ketones Urine Blood Urine Nitrite Ur Leukocyte Esterase Urine RBC Urine WBC Ur Squamous Epith Cells Urine Bacteria Hyaline Casts Urine Yeast Assessment and Plan (1) Sepsis: Status: Acute (2) UTI (urinary tract infection): Status: Acute (3) HIV (human immunodeficiency virus infection): Status: Acute (4) Immunodeficiency due to drug therapy: Status: Acute Plan 35-year-old male with a past medical history significant for type 2 diabetes, HIV, class 2 obesity and recent ED visit for acute UTI and hyperglycemia, who presented to the ED again due to worsening symptoms. found to have possible UTI and right sided nephrolithiasis Sepsis secondary to UTI likely ESBL given prior urine culture with ESBL - CT abd/pelvis with right sided nephrolithiasis measuring 0.7cm - blood cultures ordered and pending - s.p levofloxacin given in ED, will continue with Meropenem per prior urine culture, new culture pending - ID consulted - If worsening symptoms, to consider consulting urology, at this time nephrolithiasis non obstructing - continue IVF - monitor CBC and BMP T2DM, chronic, uncontrolled a1c 9.9 - SSI - diabetic diet - hold metformin and glipizide while in the hospital HIV Immunodeficiency secondary to medications -continue genvoy, follow up with ID as outpatient -continue to monitor for any worsening fevers, encephalopathy class 2 obesity - weight loss encouraged full code VTE prophy: [email or web address] Total time managing care of this patient today: 55 minutes. Quality Stroke Does the patient have a stroke diagnosis?: No VTE Prior VTE?: No VTE Risk Level:: Medical - moderate - high VTE Device Contraindication: Treatment Not Indicated VTE Drug Contraindication: N/A - Med Ordered
--- NOTE | 2025-09-23 11:02 | MHC.CM.PN ---
pt lives with family is indepedent will not need services when dcd dc plan home n/s
--- NOTE | 2025-09-23 11:04 | MHC.CM.PN ---
pt is indepedent will not needservices car in parking l;ot dc plan home n/s
[2025-09-23 12:06] LABS: Glucose, Whole Blood 271 mg/dL (60-115)
--- NOTE | 2025-09-23 12:47 | PHA.MEDREC ---
Addendum entered by Lucius Mayo PharmD 09/23/25 12:54: reviewed Original Note: Pharmacy Consult ? Medication Reconciliation Pharmacy has completed the medication reconciliation. Confirmed medication list with Patient and against claims history. Patient states they have not taken Zofran since last hospital visit.
[2025-09-23 16:05] LABS: Glucose, Whole Blood 231 mg/dL (60-115)
[2025-09-23] MEDS: Lactated Ringers 1,000 ML 125 ML IVCONT (19:40)
[2025-09-23 21:19] LABS: Glucose, Whole Blood 273 mg/dL (60-115)
--- NOTE | 2025-09-23 22:07 | W.PM.IDCN ---
History of Present Illness Data of Consult Service Date: 09/23/25 Requesting physician: Ronal Bee Primary Care Provider: MD JETT Patrick Reason for consult: right flank pain,dysuria,sepsis He presents with flank pain,dysuria,nausea and vomiting to ER. He has had UTI with E coli ESBL sensitive to nitrofurantion and ertapenem in past. He has HIV reportedly controlled and been on Genvoya. Review of Systems Review of Systems: Yes all other systems are reviewed and are negative PMF Past Medical History Medical History HIV (human immunodeficiency virus infection) Class 2 obesity UTI (urinary tract infection) Family History Family history: reviewed and not pertinent Social History Social History Household Members: Family Housing: House Patient Tobacco Use Status: Tobacco use Unknown Currently Displaying Signs/Symptoms of Drug Intoxication Withdrawal: No Advance Directives: No Advance Directives Information Provided: No Do you have a plan to hurt others: No Plan Recently lost weight without trying: No Eating poorly because of decreased appetite: No Nutrition Risks: No Nutritional Risk service: No Meds Allergies Allergy/AdvReac Type Severity Reaction Status Date / Time No Known Allergies Allergy Verified 09/22/25 21:02 Active Medications: Current Medications Acetaminophen (Acetaminophen 325 Mg Tablet) 975 mg PO Q6H PRN PRN Reason: Pain, Mild 1-3,fever,headache Last Admin: 09/23/25 15:35 Dose: 975 mg Calcium Carbonate (Calcium Carbonate 750 Mg Tab.Chew) 750 mg PO Q4H PRN PRN Reason: Heartburn Dextrose (Dextrose 50 % 25 Gm/50 Ml Syringe) 25 gm IVPUSH Q15M PRN; Protocol PRN Reason: per Hypoglycemia Standing Ord. Enoxaparin Sodium (Enoxaparin Sodium 40 Mg/0.4 Ml Syringe) 40 mg SUBCUT Q24H [facility] Last Admin: 09/23/25 08:21 Dose: 40 mg Glucose (Glucose Gel 15 Gm Gel..Gram.) 15 gm PO Q15M PRN; Protocol PRN Reason: per Hypoglycemia Standing Ord. Hydromorphone HCl (Hydromorphone Hcl 1 Mg/Ml Syringe) 0.5 mg IVPUSH Q4H PRN; Protocol PRN Reason: Pain, Severe (Pain Scale 7-10) Lactated Ringer's (Lr) 1,000 mls @ 125 mls/hr IVCONT .Q8H [facility] Last Admin: 09/23/25 19:40 Dose: 125 mls/hr Insulin Human Lispro (Insulin Lispro 100 Unit/Ml 3 Ml Vial) 0 unit SUBCUT QIDACHS [facility]; Protocol Last Admin: 09/23/25 21:31 Dose: 6 unit Magnesium Hydroxide (Milk Of Magnesia 30 Ml Oral.Susp) 30 ml PO DAILY PRN PRN Reason: Constipation Melatonin (Melatonin 3 Mg Tablet) 6 mg PO BEDTIME PRN PRN Reason: Insomnia Meropenem (Meropenem 1 Gm Vial) 1 gm IVPUSH Q8H [facility] Last Admin: 09/23/25 15:35 Dose: 1 gm Ondansetron HCl (Ondansetron Hcl 4 Mg/2 Ml Vial) 4 mg IVPUSH Q8H PRN PRN Reason: Nausea and Vomiting Oxycodone HCl (Oxycodone Hcl Immed Release 5 Mg Tablet) 5 mg PO Q6H PRN PRN Reason: Pain, Moderate(Pain Scale 4-6) Sodium Chloride (0.9 % Sodium Chloride Flush 3 Ml Syringe) 3 ml IVFLUSH QSHIFT [facility] Last Admin: 09/23/25 14:52 Dose: Not Given Home Medications ?Medication ?Instructions ?Recorded ?Confirmed ?Last Taken ?Type elviteg 150 mg-cob 150 mg-emtricit 1 tab PO DAILY 09/23/25 09/23/25 09/22/25 09:00 History 200 mg-tenofo alafenam 10 mg tablet (Genvoya) glipizide 5 mg tablet 5 mg PO DAILY 09/23/25 09/23/25 09/22/25 09:00 History metformin 500 mg tablet,extended 500 mg PO BID 09/23/25 09/23/25 09/22/25 09:00 History release 24 hr Physical Exam Vital Signs: Vital Signs: Last Vital Signs Temp 99.6 F 09/23/25 21:33 Pulse 117 H 09/23/25 20:00 Resp 19 09/23/25 20:00 BP 171/78 H 09/23/25 20:00 Pulse Ox 95 09/23/25 20:00 O2 Del Method Room Air 09/23/25 20:00 BMI result Body Mass Index 29.9 Const: General: cooperative HEENT: Head: Yes normal to inspection Face and sinus: Yes normal facial exam Mouth: Normal oral and palatal mucosa present Teeth and gingiva: dentition normal Eyes: General: appearance normal, both eyes and all related structures Pupils: Equal, round and reactive pupils present Resp: Effort & Inspection: normal respiratory effort Cardio: Rate: regular rate Rhythm: regular rhythm GI: Palpation (GI): Soft to palpation and nontender : General: Yes no CVA tenderness Back/Spine/Pelvis: Back: no CVA tenderness Skin: General skin exam: no rashes or lesions noted Neuro: General: moves all extremities Cranial nerves: Yes Equal, round and reactive pupils present Extrem: General: Yes normal to inspection Psych: Appearance: grossly normal Results Labs 09/23/25 08:54 09/23/25 08:54 Labs: Short CBC 09/23/25 Range/Units 08:54 WBC 11.0 H (4.8-10.8) X10*3/uL Hgb 15.5 (14.0-18.0) g/dl Hct 42.9 (42.0-52.0) % Plt Count 135 L (160-400) X10*3/uL BMP 09/23/25 08:54 Sodium 134 L Potassium 3.8 Chloride 102 Carbon Dioxide 24 BUN 16 Creatinine 0.82 Calcium 8.7 D Microbiology Microbiology Results: Microbiology 09/22/25 21:46 Urine clean catch Urine Culture - Preliminary Culture in progress. Assessment and Plan (1) UTI (urinary tract infection): Status: Acute (2) Sepsis: Status: Acute (3) HIV (human immunodeficiency virus infection): Status: Acute Plan He has possible ESBL infection but pending cultures. Therefore Merem which covers gram negatives in general is good choice. He has sepsis but no obstructing lesion or abscess so agree Urology not needed at the momentn Continue Merem Continue Genvoya (may take from home) Await blood and urine cultures and deescalate if appropriate.(e.g switch Merem to Ceftriaxone if organism nonexistent or sensitive)
[2025-09-24] MEDS: Lactated Ringers 1,000 ML 125 ML IVCONT ×4 (03:18→20:14)
[2025-09-24 03:23] VITALS: BP 162/82; PULSE 108; RESP 18; TEMP 37; O2SAT 94
[2025-09-24 06:11] LABS: MANUAL DIFF FLAG NO
[2025-09-24 06:14] LABS: Hematocrit 42.2 % (42.0-52.0); Hemoglobin 15.2 g/dl (14.0-18.0); Imm Gran Abs Auto 0.06 X10*3/uL (0.00-0.03); Imm Gran Pct Auto 0.5 % (0.0-0.4); Lymphocytes Absolute Auto 1.1 X10*3/uL (1.2-4.9); Mean Corpuscular HGB Conc 36.0 g/dl (31.0-36.0); Mean Corpuscular Hemoglobin 30.0 pg (27.0-33.0); Mean Corpuscular Volume 83.4 fL (80.0-98.0); NRBC Abs Auto 0.000 X10*3/uL (0.0-0.012); NRBC Pct Auto 0.0 /100WBC (0.0-0.2); Platelet Count 125 X10*3/uL (160-400); Red Blood Count 5.06 X10*6/uL (4.60-5.80); White Blood Count 11.6 X10*3/uL (4.8-10.8)
[2025-09-24 06:30] LABS: Anion Gap 15 (12-20); Blood Urea Nitrogen 9 mg/dL (9-16); Calcium 8.8 mg/dL (8.4-10.2); Carbon Dioxide 22 mmol/L (22-29); Chloride 100 mmol/L (96-108); Creatinine Clr Calc Pharmacy 200.0; Estimated Glomerular Filt Rate > 60; Potassium 3.6 mmol/L (3.3-5.1); Sodium 133 mmol/L (135-145)
[2025-09-24 07:53] LABS: Glucose, Whole Blood 231 mg/dL (60-115)
[2025-09-24 07:56] VITALS: BP 158/77; PULSE 105; RESP 18; TEMP 37.8; O2SAT 96
[2025-09-24] MEDS: 0.9 % Sodium Chloride Flush 3 ML SYRINGE IVFLUSH (08:02)
[2025-09-24 11:28] LABS: Glucose, Whole Blood 270 mg/dL (60-115)
--- NOTE | 2025-09-24 12:00 | P.PNIM_ITS ---
Subjective Subjective Date of Service: 09/24/25 Interval History: Patient seen and examined at bedside this morning, patient had fever yesterday of 102.3, seen by infectious disease suggested on continuing meropenem and Biktarvy. Urine culture with gram negative rods. We will continue with IV fluids. Patient states that his pain has improved. Review of Systems Review of Systems: Yes all other systems are reviewed and are negative Physical Exam 2 Exam: Exam: General: AxOx3, No acute distress Head: AT/NC ENT: Moist mucous membranes Neck: supple CVS; RRR, S1 S2 normal Lungs: Clear bilateral breath sounds, no wheezes or crackles Abd: Soft non tender, non distended Ext: No edema and no calf tenderness MSK: moving all 4 limbs Skin: No cyanosis or edema Psych: Cooperative with exam Neurology: no focal deficit Vital Signs: Vital Signs: Last Vital Signs Temp 100.1 F 09/24/25 07:56 Pulse 105 H 09/24/25 07:56 Resp 18 09/24/25 07:56 BP 158/77 H 09/24/25 07:56 Pulse Ox 96 09/24/25 07:56 O2 Del Method Room Air 09/24/25 07:56 BMI result Body Mass Index 29.9 Objective Data Active Medications Acetaminophen (Acetaminophen 325 Mg Tablet) 975 mg PO Q6H PRN PRN Reason: Pain, Mild 1-3,fever,headache Last Admin: 09/24/25 10:17 Dose: 975 mg Documented By: SERGEY Calcium Carbonate (Calcium Carbonate 750 Mg Tab.Chew) 750 mg PO Q4H PRN PRN Reason: Heartburn Dextrose (Dextrose 50 % 25 Gm/50 Ml Syringe) 25 gm IVPUSH Q15M PRN; Protocol PRN Reason: per Hypoglycemia Standing Ord. Enoxaparin Sodium (Enoxaparin Sodium 40 Mg/0.4 Ml Syringe) 40 mg SUBCUT Q24H [facility] Last Admin: 09/24/25 08:01 Dose: 40 mg Documented By: SERGEY Glucose (Glucose Gel 15 Gm Gel..Gram.) 15 gm PO Q15M PRN; Protocol PRN Reason: per Hypoglycemia Standing Ord. Hydromorphone HCl (Hydromorphone Hcl 1 Mg/Ml Syringe) 0.5 mg IVPUSH Q4H PRN; Protocol PRN Reason: Pain, Severe (Pain Scale 7-10) Lactated Ringer's (Lr) 1,000 mls @ 125 mls/hr IVCONT .Q8H [facility] Last Admin: 09/24/25 08:02 Dose: 125 mls/hr Documented By: SERGEY Insulin Human Lispro (Insulin Lispro 100 Unit/Ml 3 Ml Vial) 0 unit SUBCUT QIDACHS [facility]; Protocol Last Admin: 09/24/25 11:38 Dose: 6 unit Documented By: SERGEY Magnesium Hydroxide (Milk Of Magnesia 30 Ml Oral.Susp) 30 ml PO DAILY PRN PRN Reason: Constipation Melatonin (Melatonin 3 Mg Tablet) 6 mg PO BEDTIME PRN PRN Reason: Insomnia Meropenem (Meropenem 1 Gm Vial) 1 gm IVPUSH Q8H [facility] Last Admin: 09/24/25 08:01 Dose: 1 gm Documented By: SERGEY Ondansetron HCl (Ondansetron Hcl 4 Mg/2 Ml Vial) 4 mg IVPUSH Q8H PRN PRN Reason: Nausea and Vomiting Last Admin: 09/24/25 03:39 Dose: 4 mg Documented By: ISIDRO Oxycodone HCl (Oxycodone Hcl Immed Release 5 Mg Tablet) 5 mg PO Q6H PRN PRN Reason: Pain, Moderate(Pain Scale 4-6) Sodium Chloride (0.9 % Sodium Chloride Flush 3 Ml Syringe) 3 ml IVFLUSH QSHIFT [facility] Last Admin: 09/24/25 08:02 Dose: 3 ml Documented By: SERGEY Labs 09/24/25 05:53 09/24/25 05:54 Labs: Laboratory Results - last 24 hr 09/23/25 09/23/25 09/23/25 12:02 15:55 21:12 MCV MCH MCHC RDW Plt Count MPV Immature Gran % (Auto) Neut % (Auto) Lymph % (Auto) [place] % (Auto) Eos % (Auto) Baso % (Auto) Lymph # (Auto) [place] # (Auto) Eos # (Auto) Baso # (Auto) Abs Immat Gran (auto) Absolute Neuts (auto) Absolute Nucleated RBC Nucleated RBC % (auto) Anion Gap Estim Creat Clear Calc Estimated GFR POC Glucose 271 H 231 H 273 H Random Glucose Calcium 09/24/25 09/24/25 09/24/25 05:53 05:54 07:47 MCV 83.4 MCH 30.0 MCHC 36.0 RDW 11.9 Plt Count 125 L MPV 10.1 Immature Gran % (Auto) 0.5 H Neut % (Auto) 81.6 H Lymph % (Auto) 9.3 L [place] % (Auto) 6.7 Eos % (Auto) 1.6 Baso % (Auto) 0.3 Lymph # (Auto) 1.1 L [place] # (Auto) 0.8 Eos # (Auto) 0.2 Baso # (Auto) 0.0 Abs Immat Gran (auto) 0.06 H Absolute Neuts (auto) 9.5 H Absolute Nucleated RBC 0.000 Nucleated RBC % (auto) 0.0 Anion Gap 15 Estim Creat Clear Calc 200.0 Estimated GFR > 60 POC Glucose 231 H Random Glucose 255 H Calcium 8.8 09/24/25 11:24 MCV MCH MCHC RDW Plt Count MPV Immature Gran % (Auto) Neut % (Auto) Lymph % (Auto) [place] % (Auto) Eos % (Auto) Baso % (Auto) Lymph # (Auto) [place] # (Auto) Eos # (Auto) Baso # (Auto) Abs Immat Gran (auto) Absolute Neuts (auto) Absolute Nucleated RBC Nucleated RBC % (auto) Anion Gap Estim Creat Clear Calc Estimated GFR POC Glucose 270 H Random Glucose Calcium Microbiology Microbiology Results: Microbiology 09/22/25 21:46 Urine Culture - Preliminary Urine clean catch Gram negative pankaj 09/22/25 23:38 Blood Culture - Preliminary Blood - Venous No growth after 24 hours. 09/22/25 22:50 Blood Culture - Preliminary Blood - Venous No growth after 24 hours. Assessment and Plan (1) Sepsis: Status: Acute (2) HIV (human immunodeficiency virus infection): Status: Acute Plan 35-year-old male with a past medical history significant for type 2 diabetes, HIV, class 2 obesity and recent ED visit for acute UTI and hyperglycemia, who presented to the ED again due to worsening symptoms. found to have possible UTI and right sided nephrolithiasis Sepsis secondary to UTI likely ESBL given prior urine culture with ESBL - CT abd/pelvis with right sided nephrolithiasis measuring 0.7cm - blood cultures ordered and pending - s.p levofloxacin given in ED, will continue with Meropenem per prior urine culture, new culturegrowing gram negative rods - ID consulted, continue meropenem - nephrolithiasis is non obstructing, will hold off on urology - continue IVF - monitor CBC and BMP T2DM, chronic, uncontrolled a1c 9.9 - SSI - diabetic diet - hold metformin and glipizide while in the hospital HIV Immunodeficiency secondary to medications -continue genvoy, follow up with ID as outpatient -continue to monitor for any worsening fevers, encephalopathy class 2 obesity - weight loss encouraged full code VTE prophy: eloy Total time managing care of this patient today: 55 minutes. Quality Stroke Does the patient have a stroke diagnosis?: No VTE Prior VTE?: No VTE Risk Level:: Medical - moderate - high VTE Device Contraindication: Treatment Not Indicated VTE Drug Contraindication: N/A - Med Ordered
[2025-09-24 16:00] VITALS: BP 176/84; PULSE 103; RESP 19; TEMP 37.4; O2SAT 96
[2025-09-24 16:22] LABS: Glucose, Whole Blood 239 mg/dL (60-115)
[2025-09-24] MEDS: Elviteg/Cobi/Emtric/Tenofo Ala 150/150/200/10 TABLET 1 TAB PO (17:12)
[2025-09-24 20:00] VITALS: BP 142/80; PULSE 109; RESP 19; TEMP 36.4; O2SAT 94
[2025-09-24 20:32] LABS: Glucose, Whole Blood 280 mg/dL (60-115)
[2025-09-25] MEDS: 0.9 % Sodium Chloride Flush 3 ML SYRINGE IVFLUSH ×2 (00:02→08:08)
[2025-09-25 03:18] VITALS: BP 159/90; PULSE 91; RESP 18; TEMP 36.3; O2SAT 93
[2025-09-25] MEDS: Lactated Ringers 1,000 ML 125 ML IVCONT ×3 (04:04→20:23)
[2025-09-25 06:25] LABS: MANUAL DIFF FLAG NO
[2025-09-25 07:09] LABS: Anion Gap 14 (12-20); Blood Urea Nitrogen 9 mg/dL (9-16); Calcium 8.6 mg/dL (8.4-10.2); Carbon Dioxide 24 mmol/L (22-29); Chloride 100 mmol/L (96-108); Creatinine Clr Calc Pharmacy 228.1; Estimated Glomerular Filt Rate > 60; Potassium 3.6 mmol/L (3.3-5.1); Sodium 134 mmol/L (135-145)
[2025-09-25 07:32] LABS: Hematocrit 42.0 % (42.0-52.0); Hemoglobin 15.2 g/dl (14.0-18.0); Imm Gran Abs Auto 0.03 X10*3/uL (0.00-0.03); Imm Gran Pct Auto 0.4 % (0.0-0.4); Lymphocytes Absolute Auto 1.0 X10*3/uL (1.2-4.9); Mean Corpuscular HGB Conc 36.2 g/dl (31.0-36.0); Mean Corpuscular Hemoglobin 30.6 pg (27.0-33.0); Mean Corpuscular Volume 84.7 fL (80.0-98.0); NRBC Abs Auto 0.000 X10*3/uL (0.0-0.012); NRBC Pct Auto 0.0 /100WBC (0.0-0.2); Platelet Count 121 X10*3/uL (160-400); Red Blood Count 4.96 X10*6/uL (4.60-5.80); White Blood Count 7.2 X10*3/uL (4.8-10.8)
[2025-09-25 07:55] LABS: Glucose, Whole Blood 251 mg/dL (60-115)
[2025-09-25 08:00] VITALS: BP 147/74; PULSE 95; RESP 20; TEMP 37.6; O2SAT 94
[2025-09-25] MEDS: Elviteg/Cobi/Emtric/Tenofo Ala 150/150/200/10 TABLET 1 TAB PO (08:08)
[2025-09-25] MEDS: oxyCODONE HCl Immed Release 5 MG TABLET PO ×2 (11:09→18:11)
[2025-09-25 11:17] LABS: Glucose, Whole Blood 256 mg/dL (60-115)
--- NOTE | 2025-09-25 12:10 | MHC.CM.PN ---
Per MD, no ready for dc but will likely need IV abx on dc. Discussed with patient who will be staying with his mother on dc and feels he can manage IV abx independently. Referrals to [facility]. CM will continue to follow.
--- NOTE | 2025-09-25 14:35 | P.PNIM_ITS ---
Subjective Subjective Date of Service: 09/25/25 Interval History: Patient seen examined at bedside this morning, urine culture positive for ESBL E coli, continues on meropenem, with pain management. Patient states that he is experiencing more pain today in back. Review of Systems Review of Systems: Yes all other systems are reviewed and are negative Physical Exam 2 Exam: Exam: General: AxOx3, No acute distress Head: AT/NC ENT: Moist mucous membranes Neck: supple CVS; RRR, S1 S2 normal Lungs: Clear bilateral breath sounds, no wheezes or crackles Abd: Soft non tender, non distended Ext: No edema and no calf tenderness MSK: moving all 4 limbs, CVA tenderness Skin: No cyanosis or edema Psych: Cooperative with exam Neurology: no focal deficit Vital Signs: Vital Signs: Last Vital Signs Temp 99.6 F 09/25/25 08:00 Pulse 95 09/25/25 08:00 Resp 20 09/25/25 08:00 BP 147/74 H 09/25/25 08:00 Pulse Ox 94 09/25/25 08:00 O2 Del Method Room Air 09/25/25 08:00 BMI result Body Mass Index 29.9 Objective Data Active Medications Acetaminophen (Acetaminophen 325 Mg Tablet) 975 mg PO Q6H PRN PRN Reason: Pain, Mild 1-3,fever,headache Last Admin: 09/24/25 17:12 Dose: 975 mg Documented By: ABHINAV Calcium Carbonate (Calcium Carbonate 750 Mg Tab.Chew) 750 mg PO Q4H PRN PRN Reason: Heartburn Dextrose (Dextrose 50 % 25 Gm/50 Ml Syringe) 25 gm IVPUSH Q15M PRN; Protocol PRN Reason: per Hypoglycemia Standing Ord. Elvitegravir/Cobicis/Emtricit/Tenof (Elviteg/Ernestina/Emtric/Tenofo Ala 150/150/200/10 Tablet) 1 tab PO DAILY [facility] Last Admin: 09/25/25 08:08 Dose: 1 tab Documented By: SLICK Enoxaparin Sodium (Enoxaparin Sodium 40 Mg/0.4 Ml Syringe) 40 mg SUBCUT Q24H [facility] Last Admin: 09/25/25 08:08 Dose: 40 mg Documented By: SLICK Glucose (Glucose Gel 15 Gm Gel..Gram.) 15 gm PO Q15M PRN; Protocol PRN Reason: per Hypoglycemia Standing Ord. Hydromorphone HCl (Hydromorphone Hcl 1 Mg/Ml Syringe) 0.5 mg IVPUSH Q4H PRN; Protocol PRN Reason: Pain, Severe (Pain Scale 7-10) Lactated Ringer's (Lr) 1,000 mls @ 125 mls/hr IVCONT .Q8H [facility] Last Admin: 09/25/25 12:40 Dose: 125 mls/hr Documented By: SLICK Insulin Human Lispro (Insulin Lispro 100 Unit/Ml 3 Ml Vial) 0 unit SUBCUT QIDACHS [facility]; Protocol Last Admin: 09/25/25 11:24 Dose: 6 unit Documented By: SLICK Magnesium Hydroxide (Milk Of Magnesia 30 Ml Oral.Susp) 30 ml PO DAILY PRN PRN Reason: Constipation Melatonin (Melatonin 3 Mg Tablet) 6 mg PO BEDTIME PRN PRN Reason: Insomnia Meropenem (Meropenem 1 Gm Vial) 1 gm IVPUSH Q8H [facility] Last Admin: 09/25/25 08:09 Dose: 1 gm Documented By: SLICK Ondansetron HCl (Ondansetron Hcl 4 Mg/2 Ml Vial) 4 mg IVPUSH Q8H PRN PRN Reason: Nausea and Vomiting Last Admin: 09/25/25 00:43 Dose: 4 mg Documented By: ISIDRO Oxycodone HCl (Oxycodone Hcl Immed Release 5 Mg Tablet) 5 mg PO Q6H PRN PRN Reason: Pain, Moderate(Pain Scale 4-6) Last Admin: 09/25/25 11:09 Dose: 5 mg Documented By: SLICK Sodium Chloride (0.9 % Sodium Chloride Flush 3 Ml Syringe) 3 ml IVFLUSH QSHIFT [facility] Last Admin: 09/25/25 08:08 Dose: 3 ml Documented By: SLICK Labs 09/25/25 06:06 09/25/25 06:06 Labs: Laboratory Results - last 24 hr 09/24/25 09/24/25 09/25/25 16:12 20:26 06:06 MCV 84.7 MCH 30.6 MCHC 36.2 H RDW 11.9 Plt Count 121 L MPV 10.8 Immature Gran % (Auto) 0.4 Neut % (Auto) 76.1 H Lymph % (Auto) 14.4 L [place] % (Auto) 8.1 Eos % (Auto) 0.4 Baso % (Auto) 0.6 Lymph # (Auto) 1.0 L [place] # (Auto) 0.6 Eos # (Auto) 0.0 Baso # (Auto) 0.0 Abs Immat Gran (auto) 0.03 Absolute Neuts (auto) 5.5 Absolute Nucleated RBC 0.000 Nucleated RBC % (auto) 0.0 Anion Gap 14 Estim Creat Clear Calc 228.1 Estimated GFR > 60 POC Glucose 239 H 280 H Random Glucose 228 H Calcium 8.6 09/25/25 09/25/25 07:27 11:07 MCV MCH MCHC RDW Plt Count MPV Immature Gran % (Auto) Neut % (Auto) Lymph % (Auto) [place] % (Auto) Eos % (Auto) Baso % (Auto) Lymph # (Auto) [place] # (Auto) Eos # (Auto) Baso # (Auto) Abs Immat Gran (auto) Absolute Neuts (auto) Absolute Nucleated RBC Nucleated RBC % (auto) Anion Gap Estim Creat Clear Calc Estimated GFR POC Glucose 251 H 256 H Random Glucose Calcium Microbiology Microbiology Results: Microbiology 09/22/25 21:46 Urine Culture - Final Urine clean catch Escherichia coli 09/22/25 23:38 Blood Culture - Preliminary Blood - Venous No growth after 48 hours. 09/22/25 22:50 Blood Culture - Preliminary Blood - Venous No growth after 48 hours. Assessment and Plan (1) UTI (urinary tract infection): Status: Acute (2) HIV (human immunodeficiency virus infection): Status: Acute (3) Immunodeficiency due to drug therapy: Status: Acute Plan 35-year-old male with a past medical history significant for type 2 diabetes, HIV, class 2 obesity and recent ED visit for acute UTI and hyperglycemia, who presented to the ED again due to worsening symptoms. found to have possible UTI and right sided nephrolithiasis Sepsis secondary to UTI secondary to ESBL E Coli UTI ESBL E Coli - CT abd/pelvis with right sided nephrolithiasis measuring 0.7cm - blood cultures ordered and pending - s.p levofloxacin given in ED, will continue with Meropenem with urine culture positive for ESBL - ID consulted, continue meropenem - nephrolithiasis is non obstructing, will hold off on urology - continue IVF - monitor CBC and BMP -continue with isolation precautions T2DM, chronic, uncontrolled a1c 9.9 - ISS, will initiate basal insulin at 10 units - diabetic diet - hold metformin and glipizide while in the hospital HIV Immunodeficiency secondary to medications -continue genvoya, follow up with ID as outpatient -continue to monitor for any worsening fevers, encephalopathy class 2 obesity - weight loss encouraged full code VTE prophy: eloy Total time managing care of this patient today: 55 minutes. Quality Stroke Does the patient have a stroke diagnosis?: No VTE Prior VTE?: No VTE Risk Level:: Medical - moderate - high VTE Device Contraindication: Treatment Not Indicated VTE Drug Contraindication: N/A - Med Ordered
[2025-09-25 15:16] VITALS: BP 154/75; PULSE 96; RESP 18; TEMP 36.1; O2SAT 93
[2025-09-25 16:09] LABS: Glucose, Whole Blood 234 mg/dL (60-115)
--- NOTE | 2025-09-25 16:22 | P.PNID_ITS ---
Subjective Subjective Date of Service: 09/25/25 Critical Care Time (minutes): 15 Comment: patient sleepy.back pain complaints still Objective Data Labs 09/25/25 06:06 09/25/25 06:06 Labs: Laboratory Results - last 24 hr 09/24/25 09/24/25 09/25/25 16:12 20:26 06:06 WBC 7.2 RBC 4.96 Hgb 15.2 Hct 42.0 MCV 84.7 MCH 30.6 MCHC 36.2 H RDW 11.9 Plt Count 121 L MPV 10.8 Immature Gran % (Auto) 0.4 Neut % (Auto) 76.1 H Lymph % (Auto) 14.4 L [place] % (Auto) 8.1 Eos % (Auto) 0.4 Baso % (Auto) 0.6 Lymph # (Auto) 1.0 L [place] # (Auto) 0.6 Eos # (Auto) 0.0 Baso # (Auto) 0.0 Abs Immat Gran (auto) 0.03 Absolute Neuts (auto) 5.5 Absolute Nucleated RBC 0.000 Nucleated RBC % (auto) 0.0 Sodium 134 L Potassium 3.6 Chloride 100 Carbon Dioxide 24 Anion Gap 14 BUN 9 Creatinine 0.64 Estim Creat Clear Calc 228.1 Estimated GFR > 60 POC Glucose 239 H 280 H Random Glucose 228 H Calcium 8.6 09/25/25 09/25/25 09/25/25 07:27 11:07 16:03 WBC RBC Hgb Hct MCV MCH MCHC RDW Plt Count MPV Immature Gran % (Auto) Neut % (Auto) Lymph % (Auto) [place] % (Auto) Eos % (Auto) Baso % (Auto) Lymph # (Auto) [place] # (Auto) Eos # (Auto) Baso # (Auto) Abs Immat Gran (auto) Absolute Neuts (auto) Absolute Nucleated RBC Nucleated RBC % (auto) Sodium Potassium Chloride Carbon Dioxide Anion Gap BUN Creatinine Estim Creat Clear Calc Estimated GFR POC Glucose 251 H 256 H 234 H Random Glucose Calcium Microbiology Microbiology Results: Microbiology 09/22/25 21:46 Urine clean catch Urine Culture - Final Escherichia coli 09/22/25 23:38 Blood - Venous Blood Culture - Preliminary No growth after 48 hours. 09/22/25 22:50 Blood - Venous Blood Culture - Preliminary No growth after 48 hours. Physical Exam 2 Vital Signs: Vital Signs: Last Vital Signs Temp 97.0 F 09/25/25 15:16 Pulse 96 09/25/25 15:16 Resp 18 09/25/25 15:16 BP 154/75 H 09/25/25 15:16 Pulse Ox 93 09/25/25 15:16 O2 Del Method Room Air 09/25/25 15:16 BMI result Body Mass Index 29.9 Const: General: cooperative HEENT: Head: Yes normal to inspection Face and sinus: Yes normal facial exam Mouth: Normal oral and palatal mucosa present Teeth and gingiva: d entition normal Eyes: General: appearance normal, both eyes and all related structures P upils: Equal, round and reactive pupils present Resp: Effort & Inspection: normal respiratory effort Cardio: Rate: regular rate Rhythm: regular rhythm GI: Palpation (GI): Soft to palpation and nontender : General: Yes no CVA tenderness Back/Spine/Pelvis: Back: no CVA tenderness Skin: General skin exam: no rashes or lesions noted Neuro: General: moves all extremities Cranial nerves: Yes Equal, round and reactive pupils present Extrem: General: Yes normal to inspection Psych: Other: sleepy Assessment and Plan Assessment and plan (1) Acute pyelonephritis: Status: Acute (2) Sepsis: Problem details: He has ESBL E coli UTI present Status: Acute Assessment and Plan: Ertapenem IV on discharge,needs line 14 d IV total abx. (3) HIV (human immunodeficiency virus infection): Problem details: Continue Genvoya. Status: Acute Time Spent With Patient Time: Total time managing care of this patient today ____ minutes.
[2025-09-25 20:00] VITALS: BP 171/91; PULSE 97; RESP 18; TEMP 37.9; O2SAT 97
[2025-09-25 20:27] LABS: Glucose, Whole Blood 257 mg/dL (60-115)
[2025-09-25] MEDS: Insulin Glargine,Hum.rec.anlog 100 UNIT/ML 10 ML VIAL 10 UNIT SUBCUT (20:37)
[2025-09-26 00:15] VITALS: BP 123/68; PULSE 84; RESP 16; TEMP 36.7; O2SAT 93
[2025-09-26 04:00] VITALS: BP 134/74; PULSE 80; RESP 18; TEMP 36.5; O2SAT 95
[2025-09-26 07:53] LABS: Glucose, Whole Blood 225 mg/dL (60-115)
[2025-09-26 08:00] VITALS: BP 138/89; PULSE 85; RESP 18; TEMP 36.3; O2SAT 94
[2025-09-26] MEDS: Elviteg/Cobi/Emtric/Tenofo Ala 150/150/200/10 TABLET 1 TAB PO (08:10)
[2025-09-26] MEDS: 0.9 % Sodium Chloride Flush 3 ML SYRINGE IVFLUSH ×3 (08:10→23:42)
[2025-09-26 12:13] LABS: Glucose, Whole Blood 297 mg/dL (60-115)
--- NOTE | 2025-09-26 12:19 | HO.PM.IMPN ---
Subjective Subjective Date of Service: 09/26/25 Interval History: Patient seen and examined at bedside this morning, patient seen by infectious disease, suggested on ertapenem IV to complete a total of 14 days. Patient states that overnight he was having nausea vomiting and pain, with temperature of 100.3 yesterday night. Review of Systems Review of Systems: Yes all other systems are reviewed and are negative Physical Exam Exam: Exam: General: AxOx3, No acute distress Head: AT/NC ENT: Moist mucous membranes Neck: supple CVS; RRR, S1 S2 normal Lungs: Clear bilateral breath sounds, no wheezes or crackles Abd: Soft non tender, non distended Ext: No edema and no calf tenderness MSK: moving all 4 limbs, CVA tenderness, improved Skin: No cyanosis or edema Psych: Cooperative with exam Neurology: no focal deficit Vital Signs: Vital Signs: Last Vital Signs Temp 97.4 F 09/26/25 08:00 Pulse 85 09/26/25 08:00 Resp 18 09/26/25 08:00 BP 138/89 09/26/25 08:00 Pulse Ox 94 09/26/25 08:00 O2 Del Method Room Air 09/26/25 08:00 BMI result Body Mass Index 29.9 Objective Data Active Medications Acetaminophen (Acetaminophen 325 Mg Tablet) 975 mg PO Q6H PRN PRN Reason: Pain, Mild 1-3,fever,headache Last Admin: 09/26/25 08:12 Dose: 975 mg Documented By: ENRIQUE Calcium Carbonate (Calcium Carbonate 750 Mg Tab.Chew) 750 mg PO Q4H PRN PRN Reason: Heartburn Dextrose (Dextrose 50 % 25 Gm/50 Ml Syringe) 25 gm IVPUSH Q15M PRN; Protocol PRN Reason: per Hypoglycemia Standing Ord. Elvitegravir/Cobicis/Emtricit/Tenof (Elviteg/Ernestina/Emtric/Tenofo Ala 150/150/200/10 Tablet) 1 tab PO DAILY [facility] Last Admin: 09/26/25 08:10 Dose: 1 tab Documented By: ENRIQUE Enoxaparin Sodium (Enoxaparin Sodium 40 Mg/0.4 Ml Syringe) 40 mg SUBCUT Q24H [facility] Last Admin: 09/26/25 08:10 Dose: 40 mg Documented By: ENRIQUE Glucose (Glucose Gel 15 Gm Gel..Gram.) 15 gm PO Q15M PRN; Protocol PRN Reason: per Hypoglycemia Standing Ord. Hydromorphone HCl (Hydromorphone Hcl 1 Mg/Ml Syringe) 0.5 mg IVPUSH Q4H PRN; Protocol PRN Reason: Pain, Severe (Pain Scale 7-10) Last Admin: 09/25/25 20:38 Dose: 0.5 mg Documented By: FERNY Insulin Glargine (Insulin Glargine,Hum.Rec.Anlog 100 Unit/Ml 10 Ml Vial) 10 unit SUBCUT BEDTIME [facility] Last Admin: 09/25/25 20:37 Dose: 10 unit Documented By: FERNY Insulin Human Lispro (Insulin Lispro 100 Unit/Ml 3 Ml Vial) 0 unit SUBCUT QIDACHS [facility]; Protocol Last Admin: 09/26/25 11:59 Dose: 6 unit Documented By: ENRIQUE Magnesium Hydroxide (Milk Of Magnesia 30 Ml Oral.Susp) 30 ml PO DAILY PRN PRN Reason: Constipation Melatonin (Melatonin 3 Mg Tablet) 9 mg PO BEDTIME PRN PRN Reason: Insomnia Last Admin: 09/25/25 20:38 Dose: 9 mg Documented By: FERNY Meropenem (Meropenem 1 Gm Vial) 1 gm IVPUSH Q8H [facility] Last Admin: 09/26/25 08:10 Dose: 1 gm Documented By: ENRIQUE Ondansetron HCl (Ondansetron Hcl 4 Mg/2 Ml Vial) 4 mg IVPUSH Q8H PRN PRN Reason: Nausea and Vomiting Last Admin: 09/25/25 20:19 Dose: 4 mg Documented By: FERNY Oxycodone HCl (Oxycodone Hcl Immed Release 5 Mg Tablet) 5 mg PO Q6H PRN PRN Reason: Pain, Moderate(Pain Scale 4-6) Last Admin: 09/25/25 18:11 Dose: 5 mg Documented By: LISA Sodium Chloride (0.9 % Sodium Chloride Flush 3 Ml Syringe) [address] [facility] Last Admin: 09/26/25 08:10 Dose: 3 ml Documented By: ENRIQUE Labs 09/25/25 06:06 09/25/25 06:06 Labs: Laboratory Results - last 24 hr 09/25/25 09/25/25 09/26/25 16:03 20:22 07:39 POC Glucose 234 H 257 H 225 H 09/26/25 11:36 POC Glucose 297 H Microbiology Microbiology Results: Microbiology 09/22/25 21:46 Urine Culture - Final Urine clean catch Escherichia coli Assessment and Plan (1) Sepsis: Status: Acute (2) HIV (human immunodeficiency virus infection): Status: Acute (3) Immunodeficiency due to drug therapy: Status: Acute Plan 35-year-old male with a past medical history significant for type 2 diabetes, HIV, class 2 obesity and recent ED visit for acute UTI and hyperglycemia, who presented to the ED again due to worsening symptoms. found to have possible UTI and right sided nephrolithiasis, with urine culture growing ESBL, plans on treating with meropenem/ertapenem for a total of 14 days. Sepsis secondary to UTI secondary to ESBL E Coli UTI ESBL E Coli - CT abd/pelvis with right sided nephrolithiasis measuring 0.7cm - blood cultures ordered and pending - s.p levofloxacin given in ED, will continue with Meropenem with urine culture positive for ESBL - ID consulted, continue meropenem - nephrolithiasis is non obstructing, will hold off on urology - continue IVF - monitor CBC and BMP -continue with isolation precautions T2DM, chronic, uncontrolled a1c 9.9 - ISS, continue basal insulin at 10 units - diabetic diet - hold metformin and glipizide while in the hospital HIV Immunodeficiency secondary to medications -continue genvoya, follow up with ID as outpatient -continue to monitor for any worsening fevers, encephalopathy class 2 obesity - weight loss encouraged full code VTE prophy: lovenox Disposition: All questions and concerns with the patient were answered to satisfaction. All pertinent clinical documents, images and labs were reviewed. patient with temperature of 100.2 yesterday night, if no fever overnight and improving to consider discharging in the next day or two. given patients HIV status. DISCLAIMER: This document was created using voice recognition software. Any mistakes in the prescription are unintentional. An attempt was made to focus for accuracy, but to expedite availability, some errors may persist. Please contact with any need for correction or further clarification Total time managing care of this patient today: 55 minutes. Quality Stroke Does the patient have a stroke diagnosis?: No VTE Prior VTE?: No VTE Risk Level:: Medical - moderate - high VTE Device Contraindication: Treatment Not Indicated VTE Drug Contraindication: N/A - Med Ordered
--- NOTE | 2025-09-26 14:31 | MHC.CM.PN ---
PT HAS BEEN ACCEPTED BY [facility]. PER KRISTOPHER, PLEASE FAX ALL DC PPW TO [phone]. PLEASE CALL OFFICE WHEN DC [phone]. CM WILL CONTINUE TO FOLLOW.
[2025-09-26 15:19] VITALS: BP 132/71; PULSE 54; RESP 18; TEMP 36.6; O2SAT 97
[2025-09-26 16:18] LABS: Glucose, Whole Blood 242 mg/dL (60-115)
[2025-09-26 19:10] VITALS: BP 132/79; PULSE 70; RESP 14; TEMP 36.1; O2SAT 95
[2025-09-26] MEDS: Insulin Glargine,Hum.rec.anlog 100 UNIT/ML 10 ML VIAL 10 UNIT SUBCUT (20:22)
[2025-09-26 20:33] LABS: Glucose, Whole Blood 289 mg/dL (60-115)
[2025-09-27 03:12] VITALS: BP 125/61; PULSE 75; RESP 15; TEMP 36.1; O2SAT 94
[2025-09-27 07:40] VITALS: BP 135/75; PULSE 72; RESP 16; TEMP 36.8; O2SAT 96
[2025-09-27 07:52] LABS: Glucose, Whole Blood 242 mg/dL (60-115)
[2025-09-27] MEDS: Elviteg/Cobi/Emtric/Tenofo Ala 150/150/200/10 TABLET 1 TAB PO (08:09)
[2025-09-27] MEDS: 0.9 % Sodium Chloride Flush 3 ML SYRINGE IVFLUSH (08:10)
--- NOTE | 2025-09-27 12:27 | HO.MIDLINE ---
Midline Insertion MIDLINE INSERTION Diagnosis: UTI/ESBL Indication: 14 days ertapenem Pertinent Labs: reviewed Technique: Using sterile technique including cap and mask, glove and drape, the right arm was prepped and draped in the usual sterile fashion of full barrier technique with CHG. Using ultrasound guidance, right basilic vein access was obtained . 4fr single lumen non PASV POWERMIDLINE was positioned. The procedure was performed in [facility]. Ultrasound was used to document vein patency and for needle entry. A formal ultrasound picture was recorded. [employer] has released the line for use and it is currently dressed with a StatLock, Tegaderm, and CHG disc. Verification has been performed for blood return and line patency. Arm Circumference: 31cm Equipment: [employer] POWERMIDLINE catheter Catheter Type: 4fr single lumen nonPASV Lot #: [id number]
[2025-09-27 13:00] LABS: Glucose, Whole Blood 301 mg/dL (60-115)
--- NOTE | 2025-09-27 13:20 | PM.DS ---
DS: Providers Provider Date of Service: 09/27/25 Date of admission: 09/22/25 23:09 Date of discharge: 09/27/25 Primary care physician: Kathe Bermudez MD Consults: 09/22/25 23:14 Consult to Infectious Diseases Routine Consulting Provider: [facility] Reason for consultation: pyelo, needs ertapenum Has provider been notified: No Attending physician on discharge: Francis Cronin Discharging clinician: Francis Cronin DS: Diagnosis Discharge Diagnosis (1) Sepsis: Status: Acute (2) HIV (human immunodeficiency virus infection): Status: Acute (3) Immunodeficiency due to drug therapy: Status: Acute DS: Summary Hospital Course Hospital Course: HPI:35-year-old male with a past medical history significant for type 2 diabetes, HIV, class 2 obesity and recent ED visit for acute UTI and hyperglycemia, who presented to the ED again due to worsening symptoms. The patient reports fever, nausea, vomiting, malodorous urine, dysuria and worsening UTI symptoms. He was initially discharged from the ED with cephalexin however this was switched to 2 nitrofurantoin based off of urine culture results. Urine culture was positive for E coli with ESBL, sensitive to ertapenem and Macrobid only. He is complaining of right-sided flank pain and lack of improvement with oral antibiotics. Hospital course: 35-year-old male with a past medical history significant for type 2 diabetes, HIV, class 2 obesity and recent ED visit for acute UTI and hyperglycemia, who presented to the ED again due to worsening symptoms. found to have possible Sepsis secondary to UTI secondary to ESBL E Coli and ct abd: right sided nephrolithiasis, with urine culture growing ESBL and blood culture negative at 48 hours, plans on treating with meropenem/ertapenem for a total of 14 days. Patient says that symptoms seems to be improved significantly, still has some soreness right flank area but otherwise improving significantly. Uncontrolled diabetes: Hemoglobin A1c is 9.9, started Lantus 5 units at bedtime in addition to metformin and glipizide, patient was strongly advised to monitor fingersticks closely at home, need further Lantus adjustment accordingly. Strongly advised to follow up with PCP. For HIV continue home medication and follow up with the his infectious disease specialist outpatient. plan: Complete ertapenem- end date will be 10/10/25. moniter cbc,renal function closely while on antibiotics . added lantus 5 units at bedtime, continue home metformin and glipizide, monitor fingersticks closely patient says that he monitor with the sensor at home, follow up with PCP for further management. Diabetic education given. Consider outpatient urology follow-up for nephrolithiasis. follow up outpatient with pcp. Above management discussed with the patient detail length he understand and in agreement with the above plan, time spent 50 minutes. Time Attestation Total time managing care of this patient today: 50 mintues. Discharge Coordination Time (in mins): 50 min Quality: Safe Use of Opioids Does Pt have an Active Cancer Diagnosis on the Problem List?: No Quality: Stroke Does the patient have a stroke diagnosis?: No Physical Exam Exam: Exam: Appearance: Alert.? Oriented X3. cvs: rrr, [id number] , no murmur res: clear to auscultation ,no rhonchii or wheezing abd: no rebound or guarding ,nt, bs present. : no cva tenderness ext pulses present , no cyanosis . neuro: axo3 , nonfocal. Vital Signs: Vital Signs: Last Vital Signs Temp 98.3 F 09/27/25 07:40 Pulse 72 09/27/25 07:40 Resp 16 09/27/25 07:40 BP 135/75 09/27/25 07:40 Pulse Ox 96 09/27/25 07:40 O2 Del Method Room Air 09/27/25 07:40 BMI result Body Mass Index 29.9 DS: Data Data Completed and Pending Labs on day of discharge: Laboratory Results - last 24 hr 09/26/25 09/26/25 09/27/25 16:14 20: 07:45 POC Glucose 242 H 289 H 242 H 09/27/25 12:55 POC Glucose 301 H Preliminary micro results at discharge 09/22/25 23:38 Blood Culture - Preliminary Blood - Venous No growth after 48 hours. 09/22/25 22:50 Blood Culture - Preliminary Blood - Venous No growth after [address] scan - abdomen: My impression: ct abd: Right-sided nephrolithiasis, the largest measuring 0.7 cm in the lower pole. No hydroureteronephrosis. Limited evaluation for pyelonephritis in the absence of intravenous contrast. Discharge Plan Discharge Anticipated Discharge Date/Time: 09/27/25 13:08 Patient Disposition: Home, Self-Care Discharge Diagnosis: esbl uti , uncontrolled dm Referrals: [facility] [Other] - 1 Week Referral Note: [facility]- A NURSE WILL CALL YOU TO SET UP FIRST VISIT. [facility] [Other] - 1 Week Referral Note: [facility]. Kathe Bermudez MD [Primary Care Provider, Internal Medicine] - 1 Week Discharge Medications: New ertapenem 1 gram Recon Soln 1 g IV DAILY Qty: 1 0RF Rx Instructions: end date 10/10/25 acetaminophen 325 mg Tablet 975 mg PO Q6H PRN (Reason: Pain, Mild 1-3,Fever,Headache) Qty: 30 0RF insulin glargine [Lantus Solostar U-100 Insulin] 100 unit/mL (3 mL) insulin pen 5 unit SUBCUT BEDTIME Qty: 15 0RF Continued ondansetron 4 mg tablet,disintegrating 4 mg PO Q8H PRN (Reason: nausea and vomiting) Qty: 4 0RF metformin 500 mg tablet extended release 24 hr 500 mg PO BID glipizide 5 mg tablet 5 mg PO DAILY Genvoya [phone] mg tablet 1 tab PO DAILY Discharge Orders: Discharge Order (Routine); Ordered 09/27/25 Ordered By: Francis Cronin Diet: Advance to usual diet Activity on Discharge: As tolerated Stand Alone Forms: Patient Portal Discharge page Print Language: Wolof Care Plan Goals: Complete ertapenem- end date will be 10/10/25. moniter cbc,renal function closely while on antibiotics . added lantus 5 units at bedtime, continue home metformin and glipizide, monitor fingersticks closely patient says that he monitor with the sensor at home, follow up with PCP for further management. follow up outpatient with pcp. Health Concerns: as above. Plan of Treatment: as above. Assessment: as above.
--- NOTE | 2025-09-27 14:18 | P.F2F_ITS ---
Service Date Service Date: 09/27/25 Encounter Date of encounter: 09/27/25 Encounter: ESBL UTI Reasons for Services Signs and symptoms assessed: Any new fever or abdominal pain or nausea vomiting or new symptoms. Reason for retirement: medication management, medication treatment and teach disease management MD Overseeing Care: Kathe Bermudez Homebound: Leaving the home is medically contraindicated at this time without the asist of a device and/or another person due th the listed conditions above and below. Reason homebound: weakness related to hospital stay Homebound supporting statement: Patient has ESBL UTI-need IV antibiotics, labs, help with the appointments. Certification: Based on the above findings, I certify that this patient is confined to the home and needs intermittent retirement care, physical therapy and/or speech therapy, or continues to need occupational therapy. The patient is under my care, and I have initiated the establishment of the plan of care. The patient will be followed by a physician who will periodically review the plan of care. Time Spent With Patient Time: Total time managing care of this patient today ____ minutes.
--- NOTE | 2025-09-27 14:25 | MHC.CM.PN ---
DP: PT HAS BEEN MEDICALLY CLEARED FOR DC HOME WITH NEW [facility], [facility]. [facility] LIAISON IN TO DO TEACH AND [facility] NOTIFIED VIA PHONE/FAX OF TODAY'S DC. ALL PPW FAXED TO [phone]. PT HAS OWN RIDE HOME.
== END 2025-09-27 15:11 | disposition home or self-care (01) | DRG 892 ==
LOC: HO.ED 22:32 → HO.EDOVER 23:16 → HO.S3 09-23 03:12
PROVIDERS: Student in an Organized Health Care Education/Training Program; Admitting Provider Physician Assistant; Emergency Provider Emergency Medicine; PCP Internal Medicine; Visit Provider Internal Medicine
DX: A41.9 Sepsis, unspecified organism (principal); B20 Human immunodeficiency virus [HIV] disease; N10 Acute pyelonephritis; E11.65 Type 2 diabetes mellitus with hyperglycemia; B96.20 Unspecified Escherichia coli [E. coli] as the cause of diseases classified elsewhere; N20.0 Calculus of kidney; Z71.3 Dietary counseling and surveillance; Z68.39 Body mass index [BMI] 39.0-39.9, adult; Z16.12 Extended spectrum beta lactamase (ESBL) resistance; Z23 Encounter for immunization; Z79.4 Long term (current) use of insulin; Z79.84 Long term (current) use of oral hypoglycemic drugs; Z79.899 Other long term (current) drug therapy
CPT/HCPCS: 36410; 36415; 74176; 80048; 80053; 81001; 82947; 83036; 83605; 83690; 85025; 87040; 87086; 87088; 87186; 90656; 99285; C1751; J1171; J1335; J1650; J1885; J1956; J2185; J2405; J7120

== ENCOUNTER → 2025-09-22 22:25 | Outpatient (BNV) | payer OTHER, SELFPAY | PROVIDERS: Admitting Provider Physician Assistant; Emergency Provider Emergency Medicine; PCP Internal Medicine; Visit Provider Student in an Organized Health Care Education/Training Program | DX: N20.0 Calculus of kidney (principal) | CPT/HCPCS: 74176 ==

== ENCOUNTER → 2025-09-22 23:09 | Outpatient (BNV) | payer OTHER, SELFPAY | PROVIDERS: Admitting Provider Physician Assistant; Emergency Provider Emergency Medicine; PCP Internal Medicine; Visit Provider Student in an Organized Health Care Education/Training Program | DX: A41.9 Sepsis, unspecified organism (principal); Z21 Asymptomatic human immunodeficiency virus [HIV] infection status; D84.821 Immunodeficiency due to drugs | CPT/HCPCS: 99223; 99233 ==

== ENCOUNTER → 2025-09-22 23:09 | Outpatient (BNV) | payer OTHER, SELFPAY | PROVIDERS: Admitting Provider Physician Assistant; Emergency Provider Emergency Medicine; PCP Internal Medicine; Visit Provider Internal Medicine | DX: N10 Acute pyelonephritis (principal); A41.9 Sepsis, unspecified organism; Z21 Asymptomatic human immunodeficiency virus [HIV] infection status | CPT/HCPCS: 99222; 99232 ==

== ENCOUNTER 2025-10-03 10:49 | Emergency (ER) | payer OTHER, SELFPAY ==
[2025-10-03 10:52] VITALS: BP 164/96; PULSE 79; RESP 20; TEMP 36.1; O2SAT 98; BMI 29.1
--- NOTE | 2025-10-03 10:52 | ED.GENADULT ---
HPI - General Adult General Chief complaint: General Medical Stated complaint: General Medical Time Seen by Provider: 10/03/25 22:03 History of Present Illness ED Provider: Lanette FRAUSTO narrative: The patient is a 35-year-old male with a history of HIV and diabetes who was recently hospitalized for a UTI with an ESBL E coli. He was admitted on September 22 and discharged on September 27. He has been administering her ertapenem once a day at home. He comes to the emergency room today because he was concerned that there was blood at the dressing under the Tegaderm. I believe he contacted someone who advised him to come to the emergency room. He presented to the emergency room but there was an extremely long wait. The patient reports that there is pain with flushing of the line but he has been able to flush the line. He has had no fever, sweats, chills. Related Data Home Medications ?Medication ?Instructions ?Recorded ?Confirmed elviteg 150 mg-cob 150 mg-emtricit 1 tab PO DAILY 09/23/25 09/23/25 200 mg-tenofo alafenam 10 mg tablet (Genvoya) glipizide 5 mg tablet 5 mg PO DAILY 09/23/25 09/23/25 metformin 500 mg tablet,extended 500 mg PO BID 09/23/25 09/23/25 release 24 hr Previous Rx's ?Medication ?Instructions ?Recorded ondansetron 4 mg disintegrating 4 mg PO Q8H PRN nausea and 08/23/25 tablet vomiting #4 tabs acetaminophen 325 mg tablet 975 mg (3 x 325 mg) PO Q6H PRN 09/27/25 Pain, Mild 1-3,Fever,Headache #30 tabs ertapenem 1 gram solution for 1 g IV DAILY #1 ea 09/27/25 injection insulin glargine 100 unit/mL (3 5 unit (0.05 mL) subcut BEDTIME 09/27/25 mL) subcutaneous pen (Lantus #15 mL Solostar U-100 Insulin) ondansetron 4 mg disintegrating 4 mg PO DAILY PRN nausea and 09/27/25 tablet vomiting #14 tabs Allergies Allergy/AdvReac Type Severity Reaction Status Date / Time No Known Allergies Allergy Verified 10/03/25 10:56 Review of Systems Review of Systems: Yes all other systems are reviewed and are negative PMFSH Past Medical History Medical History HIV (human immunodeficiency virus infection) Class 2 obesity UTI (urinary tract infection) Social History Social History Household Members: Family Housing: House Patient Tobacco Use Status: Tobacco use Unknown Advance Directives: No Advance Directives Information Provided: No Do you have a plan to hurt others: No Plan service: No Physical Exam ED Vital Signs: Vital Signs - 24 hr 10/03/25 10:52 10/03/25 17:02 10/03/25 22:42 Temperature 97.0 F 97.2 F 97.8 F Pulse Rate 79 83 82 Respiratory Rate 20 20 16 Blood Pressure 164/96 H 170/97 H 169/111 H Pulse Oximetry 98 99 95 Oxygen Delivery Method Room Air Room Air Room Air BMI result Body Mass Index 29.1 Const Other: The patient is awake and alert, pleasant and cooperative. He does not appear acutely ill. Orientation/consciousness: patient oriented x3 HENMT Other: The face is symmetrical. ?Mucous membranes moist. Eyes Other: Pupils are round equal, conjunctivae are clear, extraocular movements intact Neck Neck: Yes normal visual inspection and Yes full ROM Resp Effort & Inspection: normal respiratory effort Skin Other: The patient has a midline placed at the medial aspect of the right upper arm. There was no erythema at the site of the catheter entering the skin. Neuro General: patient oriented x3, gait normal, tone normal, moves all extremities, no focal motor deficits and CN's II-XI intact bilaterally Extrem Other: The patient has a midline IV catheter placed at the medial aspect of the right upper arm. There was no soft tissue swelling or erythema or any other abnormality apparent. He moves the arm easily at all the joints. There was no edema in the hand or the arm. Course Course Course Narrative: This is a Rapid Medical Examination (RME) performed by Simón Rueda PA-C in triage. Full HPI, ROS, assessment and treatment plan per primary provider in the Main ED. Hx: 35 yo M hx HIV, DM, recent hx ESBL UTI and pyelonephritis w/ PICC line in place self administers ertepenum at home here w/ pain and bleeding from PICC line which began over night. also states he has not been taking his insulin at home as the pharmacy never gave him needles. checking glucose at home - BS in the 300s. PE/vitals: well appearing, vitals are stable Plan: labs Medications Administered Discontinued Medications Generic Name Dose Route Start Last Admin Trade Name David PRN Reason Stop Dose Admin Acetaminophen 650 mg 10/03/25 17:02 10/03/25 17:05 Acetaminophen 325 Mg Tablet PO 10/03/25 17:03 650 mg ONCE ONE Administration Medical Decision Making Medical Decision Making [facility] Narrative: The patient is a 35-year-old male who was currently receiving IV meropenem for treatment of an ESBL urinary tract infection. He has been giving himself IV antibiotics at home for about 5 days. Today he was concerned that the Biopatch was bloody. I believe he contacted someone who advised him to come to the emergency room for evaluation. He had an extremely long wait in the emergency room. I took down the Tegaderm and the Biopatch. There was no ongoing bleeding. The site looked healthy. I was able to flush the midline catheter. The catheter flushes fairly easily. If the flushes administered quickly the patient has discomfort but slow flushing is not painful. My overall impression is that the catheter is working as there are no other signs of dysfunction. I am not certain why I am not able to draw blood but I do not think that necessarily indicates failure of the catheter. A new Biopatch and Tegaderm were applied. The patient will resume use of his meropenem and heparin as previously instructed. Lab Data 10/03/25 11:10 10/03/25 11:10 Labs: Lab Results 10/03/25 Range/Units 11:10 WBC 5.3 (4.8-10.8) X10*3/uL RBC 5.07 (4.60-5.80) X10*6/uL Hgb 15.2 (14.0-18.0) g/dl Hct 43.2 (42.0-52.0) % MCV 85.2 (80.0-98.0) fL MCH 30.0 (27.0-33.0) pg MCHC 35.2 (31.0-36.0) g/dl RDW 12.2 (11.0-16.0) % Plt Count 298 D (160-400) X10*3/uL MPV 9.2 L (9.4-12.4) fL Immature Gran % (Auto) 0.4 (0.0-0.4) % Neut % (Auto) 57.9 (45-73) % Lymph % (Auto) 33.0 (20-40) % [place] % (Auto) 6.8 (2-11) % Eos % (Auto) 1.3 (0-4) % Baso % (Auto) 0.6 (0-2) % Lymph # (Auto) 1.8 (1.2-4.9) X10*3/uL [place] # (Auto) 0.4 (0.1-1.2) X10*3/uL Eos # (Auto) 0.1 (0.0-0.4) X10*3/uL Baso # (Auto) 0.0 (0.0-0.2) X10*3/uL Abs Immat Gran (auto) 0.02 (0.00-0.03) X10*3/uL Absolute Neuts (auto) 3.1 (2.0-8.3) x10*3/uL Absolute Nucleated RBC 0.000 (0.0-0.012) X10*3/uL Nucleated RBC % (auto) 0.0 (0.0-0.2) /100WBC Sodium 140 (135-145) mmol/L Potassium 3.9 (3.3-5.1) mmol/L Chloride 106 (96-108) mmol/L Carbon Dioxide 28 (22-29) mmol/L Anion Gap 10 L (12-20) BUN 9 (9-16) mg/dL Creatinine 0.67 (0.5-1.4) mg/dL Estim Creat Clear Calc 215.2 Estimated GFR > 60 Random Glucose 278 H (60-115) mg/dL Calcium 9.3 D (8.4-10.2) mg/dL Magnesium 1.7 (1.6-2.6) mg/dL Total Bilirubin 0.4 (0.0-1.0) mg/dL AST 20 (5-37) U/L ALT 29 (0-40) U/L Alkaline Phosphatase 140 H (39-117) U/L Total Protein 7.4 (6.5-8.0) g/dL Albumin 4.0 (3.5-5.0) g/dL Discharge Plan Discharge Clinical Impression: Bleeding from PICC line Patient Disposition: Home, Self-Care Additional Instructions: I believe that your PICC line is functionally sufficiently well for you to continue to use it. Please give yourself your next dose of antibiotic tomorrow at around 4PM The day after that around 3PM. After that return to the usual 2PM time. Please follow up with your regular doctor at [facility]. Prescriptions: No Action ondansetron 4 mg tablet,disintegrating 4 mg PO Q8H PRN (Reason: nausea and vomiting) Qty: 4 0RF metformin 500 mg tablet extended release 24 hr 500 mg PO BID glipizide 5 mg tablet 5 mg PO DAILY Genvoya [id number] mg tablet 1 tab PO DAILY ertapenem 1 gram Recon Soln 1 g IV DAILY Qty: 1 0RF Rx Instructions: end date 10/10/25 acetaminophen 325 mg Tablet 975 mg PO Q6H PRN (Reason: Pain, Mild 1-3,Fever,Headache) Qty: 30 0RF insulin glargine [Lantus Solostar U-100 Insulin] 100 unit/mL (3 mL) insulin pen 5 unit SUBCUT BEDTIME Qty: 15 0RF ondansetron 4 mg tablet,disintegrating 4 mg PO DAILY PRN (Reason: nausea and vomiting) Qty: 14 0RF Referrals: Kathe Bermudez MD [Primary Care Provider, Internal Medicine] Interventions: ED Discharge Assessment Last Done: 10/03/25 22:42 Discharge Date/Time: 10/03/25 22:48 Print Language: Georgian
[2025-10-03 11:15] LABS: MANUAL DIFF FLAG NO
[2025-10-03 11:17] LABS: Hematocrit 43.2 % (42.0-52.0); Hemoglobin 15.2 g/dl (14.0-18.0); Imm Gran Abs Auto 0.02 X10*3/uL (0.00-0.03); Imm Gran Pct Auto 0.4 % (0.0-0.4); Lymphocytes Absolute Auto 1.8 X10*3/uL (1.2-4.9); Mean Corpuscular HGB Conc 35.2 g/dl (31.0-36.0); Mean Corpuscular Hemoglobin 30.0 pg (27.0-33.0); Mean Corpuscular Volume 85.2 fL (80.0-98.0); NRBC Abs Auto 0.000 X10*3/uL (0.0-0.012); NRBC Pct Auto 0.0 /100WBC (0.0-0.2); Platelet Count 298 X10*3/uL (160-400); Red Blood Count 5.07 X10*6/uL (4.60-5.80); White Blood Count 5.3 X10*3/uL (4.8-10.8)
[2025-10-03 11:34] LABS: Alanine Aminotransferase 29 U/L (0-40); Albumin Level 4.0 g/dL (3.5-5.0); Alkaline Phosphatase 140 U/L (39-117); Anion Gap 10 (12-20); Aspartate Amino Transferase 20 U/L (5-37); Blood Urea Nitrogen 9 mg/dL (9-16); Calcium 9.3 mg/dL (8.4-10.2); Carbon Dioxide 28 mmol/L (22-29); Chloride 106 mmol/L (96-108); Creatinine Clr Calc Pharmacy 215.2; Estimated Glomerular Filt Rate > 60; Magnesium 1.7 mg/dL (1.6-2.6); Potassium 3.9 mmol/L (3.3-5.1); Sodium 140 mmol/L (135-145); Total Protein 7.4 g/dL (6.5-8.0)
[2025-10-03 17:02] VITALS: BP 170/97; PULSE 83; RESP 20; TEMP 36.2; O2SAT 99
[2025-10-03 22:42] VITALS: BP 169/111; PULSE 82; RESP 16; TEMP 36.6; O2SAT 95
== END 2025-10-03 22:48 | disposition home or self-care (01) ==
PROVIDERS: Physician Assistant Medical; Emergency Provider Emergency Medicine; PCP Internal Medicine
DX: T82.838A Hemorrhage due to vascular prosthetic devices, implants and grafts, initial encounter (principal); E11.9 Type 2 diabetes mellitus without complications
CPT/HCPCS: 36415; 80053; 83735; 85025; 99283